=== PATIENT | female | born 1930 | race Caucasian/White ===

== ENCOUNTER 2018-06-12 16:43 | Inpatient (IN) | payer MEDICARE, OTHER ==
--- NOTE | 2018-06-12 16:53 | ED Physician Chart ---
ED Chief Complaint/HPI - Patient Information Date Seen:: 06/12/18 Time Seen:: 16:40 Chief Complaint:: Dysuria History of Present Illness:: onset x 3 days of dysuria, urinary incontinence, and polyuria; no report of trauma, H/As, S/T, neck pain, cough, C/P, SOB, Abd. Pain, A/N/V/D/C, fever, chills, or bleeding Historian:: Patient Review:: Nurse's Note Reviewed, Old Chart Reviewed, EMS run form Reviewed <Andrea Dodge - Last Filed: 06/12/18 17:11> - Patient Information Allergies:: Allergies Allergy/AdvReac Type Severity Reaction Status Date / Time red dye Allergy Verified 06/12/18 17:02 <Mary Ruiz - Last Filed: 06/13/18 09:41> ED Review of Systems - Review of Systems General/Constitutional: Fever, No chills, No weight loss, Weakness, No diaphoresis, No edema, No loss of appetite Skin: No skin lesions, No rash, No bruising Head: No headache, No light-headedness Eyes: No loss of vision, No pain, No diplopia ENT: No earache, No nasal drainage, No sore throat, No tinnitus Neck: No neck pain, No swelling, No thyromegaly, No stiffness, No mass noted Cardio Vascular: No chest pain, No palpitations, No PND, No orthopnea, No edema Pulmonary: No SOB, No cough, No sputum, No wheezing GI: No nausea, No vomiting, No diarrhea, No pain, No melena, No hematochezia, No constipation, No hematemesis G/U: No dysuria, No frequency, No hematuria, No nacturia Scientific Aide: No vaginal discharge, No abnormal vaginal bleed, No contraction Musculoskeletal: No bone or joint pain, No back pain, No muscle pain Endocrine: No polyuria, No polydipsia Psychiatric: Prior psych history, Depression, Anxiety, No suicidal ideation, No homicidal ideation, No auditory hallucination, No visual hallucination Hematopoietic: No bruising, No lymphadenopathy Allergic/Immuno: No urticaria, No angioedema Neurological: No syncope, No focal symptoms, Weakness, No paresthesia, No headache, No seizure, No dizziness, Confusion, No vertigo <Andrea Dodge - Last Filed: 06/12/18 17:11> ED Past Medical History - Past Medical History Obtainable: Yes Past Medical History: HTN, DM, Dyslipidemia, PUD/GERD, ESRD, Arthritis, Dementia , Other (Cirrhosis) Family History: Diabetes Melitus, HTN, Cancer Social History: Non Smoker, Alcohol, No Drug Use, Single, Care Facility Surgical History: PEG/GTube Psychiatricy History: Depression, Bipolar, Dementia Medication: Reviewed <Andrea Dodge - Last Filed: 06/12/18 17:11> Family Medical History - Family Member Mother History Unknown: Yes <Andrea Dodge - Last Filed: 06/12/18 17:11> ED Physical Exam - Physical Examination General/Constitutional: Awake, Well-developed, well-nourished, Alert, No distress, GCS 15, Non-toxic appearing, Ambulatory Head: Atraumatic Eyes: Lids, conjuctiva normal, PERRL, EOMI Skin: Nl inspection, No rash, No skin lesions, No ecchymosis, Well hydrated, No lymphadenopathy ENMT: External ears, nose nl, TM canals nl, Nasal exam nl, Lips, teeth, gums nl , Oropharynx nl, Tonsils nl Neck: Nontender, Full ROM w/o pain, No JVD, No nuchal rigidity, No bruit, No mass, No stridor Respiratory: Nl effort/Exclusion, Clear to Auscultation, No Wheeze/Rhonchi/Rales Cardio Vascular: RRR, No murmur, gallop, rubs, NL S1 S2, Carotid/Femoral/Distal pulses equal bilaterally GI: No tenderness/rebounding/guarding, No organomegaly, No hernia, Normal BS's, Nondistended, No mass/bruits, No McBurney tenderness : No CVA tenderness Extremities: No tenderness or effusion, Full ROM, normal strength in all extremities, No edema, Normal digits & nails Neuro/Psych: Alert/oriented, DTR's symmetric, Normal sensory exam, Normal motor strength, Judgement/insight normal, Mood normal, Normal gait, No focal deficits Misc: Normal back, No paraspinal tenderness <Andrea Dodge - Last Filed: 06/12/18 17:11> ED Labs/Radiology/EKG Results - Lab Results Comments:: Reviewed - EKG Interpretations EKG Time:: 17:03 Rate & Rhythm: 103; ST Comments:: non-specific st-t changes <Andrea Dodge - Last Filed: 06/12/18 17:11> - Lab Results Results: Laboratory Tests 06/12/18 06/12/18 06/12/18 17:12 17:12 17:12 WBC 8.7 RBC 3.55 L Hgb 11.0 L Hct 32.7 L MCV 92.0 MCH 30.9 MCHC Differential 33.6 RDW 13.7 Plt Count 160 MPV 8.1 Neutrophils % 86.1 H Lymphocytes % 7.9 L Monocytes % 3.2 Eosinophils % 1.8 Basophils % 1.0 Neutrophils (Manual) Not Reportable PT 11.2 INR 1.08 PTT (Actin FS) 27.4 Sodium 137 Potassium 3.8 Chloride 103 Carbon Dioxide 21.7 Anion Gap 16.1 H BUN 31 H Creatinine 0.7 Est GFR ( Amer) TNP Est GFR (Non-Af Amer) TNP BUN/Creatinine Ratio 44.3 Glucose 202 H Whole Bld Lactic Acid Calcium 9.2 Total Bilirubin 0.6 AST 22 ALT 22 Alkaline Phosphatase 166 H Creatine Kinase 56 Troponin I Total Protein 6.3 Albumin 3.1 L Globulin 3.2 Albumin/Globulin Ratio 1.0 Urine Source Urine Color Urine Clarity Urine pH Ur Specific Felt Urine Protein Urine Glucose (UA) Urine Ketones Urine Blood Urine Nitrate Urine Bilirubin Urine Urobilinogen Ur Leukocyte Esterase Urine RBC Urine WBC Ur Epithelial Cells Urine Bacteria 06/12/18 06/12/18 06/12/18 17:12 17:12 19:35 WBC RBC Hgb Hct MCV MCH MCHC Differential RDW Plt Count MPV Neutrophils % Lymphocytes % Monocytes % Eosinophils % Basophils % Neutrophils (Manual) PT INR PTT (Actin FS) Sodium Potassium Chloride Carbon Dioxide Anion Gap BUN Creatinine Est GFR ( Amer) Est GFR (Non-Af Amer) BUN/Creatinine Ratio Glucose Whole Bld Lactic Acid 1.87 Calcium Total Bilirubin AST ALT Alkaline Phosphatase Creatine Kinase Troponin I 0.03 Total Protein Albumin Globulin Albumin/Globulin Ratio Urine Source MIDSTREAM Urine Color YELLOW Urine Clarity HAZY Urine pH 8.5 Ur Specific Felt 1.015 Urine Protein 30 H Urine Glucose (UA) NEGATIVE Urine Ketones NEGATIVE Urine Blood SMALL H Urine Nitrate NEGATIVE Urine Bilirubin NEGATIVE Urine Urobilinogen 1.0 Ur Leukocyte Esterase LARGE H Urine RBC 2-5 Urine WBC 6-10 H Ur Epithelial Cells MODERATE Urine Bacteria 3+ H <Mary Ruiz - Last Filed: 06/13/18 09:41> ED Septic Shock - . Is Septic Shock (SBP<90, OR Lactate>4 mmol\L) present?: No <Andrea Dodge - Last Filed: 06/12/18 17:11> ED Reassessment (Disposition) - Reassessment Reassessment Condition:: Improved - Diagnosis Diagnosis:: Urinary Incontinence; Dysuria <Andrea Dodge - Last Filed: 06/12/18 17:11> - Reassessment Reassessment:: Urinary tract infection Dehydration Anemia, normocytic Altered mental status Cefepime 1g IV NS 1L IV bolus Admit to telemetry <Mary Ruiz - Last Filed: 06/13/18 09:41>
[2018-06-12] MEDS ORDERED: Haloperidol Lactate 5 mg/mL 1mL Vial IM STA (17:17)
[2018-06-12] MEDS ORDERED: Haloperidol Lactate 5 mg/mL 1mL Vial ONE (17:20)
[2018-06-12 17:21] LABS: % EOSINOPHILS 1.8 % (0.0-5.0); % LYMPHOCYTES 7.9 % (20.0-50.0); % MONOCYTES 3.2 % (2.0-10.0); % NEUTROPHILS 86.1 % (40.0-80.0); BASOPHILE ABSOLUTE 0.1 Th/cumm (0-0.2); EOSINOPHILE ABSOLUTE 0.2 Th/cmm (0.1-0.4); HEMATOCRIT 32.7 % (41.0-60); LYMPHOCYTE ABSOLUTE 0.7 Th/cmm (1.5-3.0); MEAN CORPUSCULAR HEMOGLOBIN 30.9 pg (27.0-31.0); MEAN CORPUSCULAR HGB CONC 33.6 pg (28.0-36.0); MEAN PLATELET VOLUME 8.1 fl; MONOCYTE ABSOLUTE 0.3 Th/cmm (0.3-1.0); NEUTROPHILE ABSOLUTE 7.4 Th/cmm (1.8-8.0); PLATELET COUNT 160 Th/cmm (150-400); RED BLOOD COUNT 3.55 Mil/cmm (3.80-5.20); RED CELL DISTRIBUTION WIDTH 13.7 % (11.5-20.0); WHITE BLOOD COUNT 8.7 Th/cmm (4.8-10.8)
[2018-06-12 17:33] LABS: INR 1.08 (0.5-1.4); PROTHROMBIN TIME (TEST) 11.2 SECONDS (9.5-11.5)
[2018-06-12 17:38] LABS: ALBUMIN 3.1 gm/dL (3.7-5.3); ALKALINE PHOSPHATASE 166 U/L (34-104); ANION GAP 16.1 (7.0-16.0); BILIRUBIN,TOTAL 0.6 mg/dL (0.3-1.0); BUN - UREA NITROGEN 31 mg/dL (7-25); CALCIUM SERUM 9.2 mg/dL (8.6-10.3); CARBON DIOXIDE 21.7 mEq/L (21.0-31.0); CHLORIDE 103 mEq/L (98-107); CREATININE - SERUM 0.7 mg/dL (0.6-1.2); CREATININE KINASE 56 U/L (30-223); GLUCOSE 202 mg/dL (70-105); POTASSIUM SERUM 3.8 mEq/L (3.5-5.1); SGOT 22 U/L (13-39); SGPT/ALT 22 U/L (7-52); SODIUM SERUM 137 mEq/L (136-145); TOTAL PROTEIN,SERUM 6.3 gm/dL (6.0-8.3)
[2018-06-12 19:39] LABS: URINE SOURCE MIDSTREAM
[2018-06-12] MEDS ORDERED: Sodium Chloride 0.9% 1,000 ML IV ONE (19:40)
[2018-06-12 19:41] LABS: URINE BILIRUBIN NEGATIVE (NEGATIVE); URINE BLOOD SMALL (NEGATIVE); URINE GLUCOSE (UA) NEGATIVE (NEGATIVE); URINE KETONE NEGATIVE (NEGATIVE); URINE LEUKOCYTE ESTERASE LARGE (NEGATIVE); URINE MICROSCOPIC INDICATED? YES; URINE NITRATE NEGATIVE (NEGATIVE); URINE PH 8.5 (4.6 - 8.0); URINE PROTEIN 30 mg/dL (NEGATIVE)
[2018-06-12] MEDS ORDERED: Cefepime 1 GM in Sodium Chloride 0.9% 50 ML IV ONE (20:11)
[2018-06-12 20:35] LABS: URINE CLARITY HAZY (CLEAR); URINE COLOR YELLOW
[2018-06-12 20:37] LABS: URINE BACTERIA 3+ /hpf (NONE SEEN); URINE EPITHELIAL CELLS MODERATE /lpf (FEW)
[2018-06-12] MEDS: cefTRIAXone 1 GM in Sodium Chloride 0.9% 50 ML IV SCH (23:30)
[2018-06-12 23:52] VITALS: BP 134/61
[2018-06-13] MEDS: Pantoprazole 40 mg/Packet GT SCH (07:24)
[2018-06-13] MEDS: INSULIN ASPART SLIDING SCALE 100 UNITS/ML UNIT SUBQ SCH ×4 (08:31→21:02)
[2018-06-13] MEDS: Lactobacillus Rhamnosus GG 15 Billion CFU CAP.SPRINK GT SCH (08:32)
--- NOTE | 2018-06-13 08:32 | Diagnostic Imaging Report ---
CHEST X-RAY: AP view INDICATION: pain COMPARISON: None FINDINGS: There is increased interstitial lung markings with left basal subsegmental atelectasis versus scarring. There is no focal consolidation or pleural effusions . Mild cardiomegaly is noted with atherosclerosis. Degenerative changes of the spine are noted. IMPRESSION: Increased interstitial lung markings with left basal subsegmental atelectasis versus scarring. No focal consolidation identified Cardiomegaly and atherosclerotic vascular disease.
--- NOTE | 2018-06-13 09:21 | Diagnostic Imaging Report ---
Right tib-fib 2 views Indication: Pain, previous fracture fixation Comparison: none Findings: The exam is limited due to positioning and overlying external material. There is evidence of intramedullary luis and distal screw fixation of oblique distal tibial shaft fracture. No definite evidence of hardware loosening. Lucency seen projecting along the posterior tib-fib region on the lateral view likely represents healing proximal fibular shaft fracture. There is also evidence of sideplate and screw fixation of distal fibular fracture. There is an oblique mildly displaced nonunited chronic appearing fracture just proximal to the surgical plate. Osteopenia is noted. Degenerative changes are noted. There is chondrocalcinosis of the knee joint. Atherosclerosis is noted. A distal Achilles spurring is noted IMPRESSION: Evidence of fracture fixation of tibial and fibular fractures. There is a nonunited chronic appearing oblique fracture proximal to the fibular plate. Please correlate clinically. Additional healing proximal fibular shaft fracture is noted. No definite evidence of hardware loosening. Osteopenia. Degenerative changes. In the setting of trauma, if clinical symptoms persist and there is continued concern for an occult fracture, follow up exams in 5-7 days is suggested.
[2018-06-13] MEDS: Hydrocodone/APAP 5mg/325mg Tab PO PRN ×2 (09:46→17:15)
[2018-06-13] MEDS: Miconazole Nitrate 2% Antifungal Wound Cream 4 oz. Tube TP SCH (16:59)
[2018-06-13] MEDS: Insulin Detemir 100 units/mL 10mL Vial SUBQ SCH (17:12)
[2018-06-13] MEDS: cefTRIAXone 1 GM in Sodium Chloride 0.9% 50 ML IV SCH (23:02)
--- NOTE | 2018-06-14 01:34 | History & Physical ---
ADMIT DATE: 06/13/2018 CHIEF COMPLAINT: Altered mental status. HISTORY OF PRESENT ILLNESS: An 87-year-old female with underlying history of dysphagia on tube feeding, dementia, mental disorder, hypertension, prior history of complicated UTI, who was transferred to Emergency Room for evaluation of increasing confusions and agitations. The patient during admission diagnosed with complicated UTI and subsequently admitted for further treatments. At the time of eval, the patient seems confused, but denies any pain, no trouble breathing. No reported diarrhea or vomiting. No fever or any chills reported. PAST MEDICAL HISTORY: Dysphagia. PAST SURGICAL HISTORY: G-tube placement. FAMILY HISTORY: Noncontributory. SOCIAL HISTORY: Lives at nursing facility. No reported of alcohol, tobacco, or street drug use. CURRENT MEDICATIONS: Per medication reconciliation. ALLERGIES: No known drug allergies. REVIEW OF SYSTEMS: As per HPI, 12-point system appears negative. PHYSICAL EXAMINATION: VITAL SIGNS: Temperature 97.8, pulse 71, respirations 18, blood pressure 146/80 with 99% on room air. HEART: S1, S2 normal. LUNGS: Clear to auscultation bilaterally. ABDOMEN: Soft, nontender. NEUROLOGIC: The patient awake, confused, but able to move all extremities: Able to follow commands. AVAILABLE LABORATORY DATA: WBC 8.7, hemoglobin 11.0, hematocrit 32.7, platelets 160. Sodium is 137, potassium is 3.8, BUN is 31. Lactic acid is 1.87, troponin 0.03. Urine has large leukocyte esterase positive. Chest x-ray, no acute findings. ASSESSMENT: 1. Complicated urinary tract infection. 2. Right tibia fibula fracture. 3. Hypertension. 4. Dementia. 5. Dysphagia. 6. Mental disorder. PLAN: The patient was admitted to med/surg floor, started on IV antibiotic. Blood culture and urine culture was obtained. ID was consulted. Psych was consulted. The patient had an x-ray done of the right tibia fibula suggestive of internal fixations with chronic fracture. I did discuss the case with the patient's Orthopedic and I also discussed the x-ray findings. Per Orthopedic, no further management is recommended at this point. I also updated the patient's daughter regarding the patient's condition and plan of care with nursing staff. PT, OT, ST evaluation is ordered. JOB# [id number] BRITTNEY
[2018-06-14] MEDS: Hydrocodone/APAP 5mg/325mg Tab PO PRN ×4 (01:41→21:20)
[2018-06-14 05:41] LABS: % BASOPHILS 0.1 % (0.0-2.0); % LYMPHOCYTES 9.4 % (20.0-50.0); % MONOCYTES 7.3 % (2.0-10.0); % NEUTROPHILS 80.2 % (40.0-80.0); EOSINOPHILE ABSOLUTE 0.2 Th/cmm (0.1-0.4); HEMATOCRIT 30.3 % (41.0-60); HEMOGLOBIN 10.2 gm/dL (12-16); LYMPHOCYTE ABSOLUTE 0.7 Th/cmm (1.5-3.0); MEAN CELL VOLUME 92.7 fl (81-100); MEAN CORPUSCULAR HEMOGLOBIN 31.2 pg (27.0-31.0); MEAN CORPUSCULAR HGB CONC 33.7 pg (28.0-36.0); MEAN PLATELET VOLUME 8.1 fl; MONOCYTE ABSOLUTE 0.5 Th/cmm (0.3-1.0); NEUTROPHILE ABSOLUTE 5.9 Th/cmm (1.8-8.0); PLATELET COUNT 146 Th/cmm (150-400); RED BLOOD COUNT 3.27 Mil/cmm (3.80-5.20); RED CELL DISTRIBUTION WIDTH 13.3 % (11.5-20.0); WHITE BLOOD COUNT 7.3 Th/cmm (4.8-10.8)
[2018-06-14 05:58] LABS: ALB/GLOB RATIO 0.9 (1.0-1.8); ALBUMIN 2.7 gm/dL (3.7-5.3); ALKALINE PHOSPHATASE 159 U/L (34-104); ANION GAP 11.2 (7.0-16.0); BILIRUBIN,TOTAL 0.4 mg/dL (0.3-1.0); BUN - UREA NITROGEN 26 mg/dL (7-25); CALCIUM SERUM 8.7 mg/dL (8.6-10.3); CARBON DIOXIDE 24.7 mEq/L (21.0-31.0); CHLORIDE 106 mEq/L (98-107); CREATININE - SERUM 0.7 mg/dL (0.6-1.2); GLUCOSE 228 mg/dL (70-105); POTASSIUM SERUM 3.9 mEq/L (3.5-5.1); SGOT 22 U/L (13-39); SGPT/ALT 19 U/L (7-52); SODIUM SERUM 138 mEq/L (136-145); TOTAL PROTEIN,SERUM 5.6 gm/dL (6.0-8.3)
--- NOTE | 2018-06-14 06:20 | Consultation ---
DATE OF CONSULTATION: 06/13/2018 REFERRING PHYSICIAN: Dr. Alatorre. REASON FOR CONSULTATION: Urinary tract infection. HISTORY OF PRESENT ILLNESS: The patient is an 87-year-old female with a past medical history of dementia, dysphagia, and G-tube feeding, hypertension, history of UTI in the past, developed agitation as well as increasing confusion. On initial evaluation, the patient's temperature was 98 degrees Fahrenheit and WBC count 8700. Urinalysis, no pyuria and bacteriuria. ID consult was called for further evaluation and management. Meanwhile, the patient was already started on Rocephin. PAST MEDICAL HISTORY: Dementia, hypertension, diabetes mellitus type 2, dyslipidemia, peptic ulcer disease, ESRD, arthritis, dementia, cirrhosis. FAMILY HISTORY: Hypertension, diabetes mellitus type 2, cancer. SOCIAL HISTORY: The patient lives at nursing facility. No history of smoking, alcohol or drug use. PAST SURGICAL HISTORY: G-tube placement. PAST SURGICAL HISTORY: Includes G-tube placement. PSYCHIATRIC HISTORY: Depression, bipolar and Dementia. FAMILY HISTORY: Unknown. PHYSICAL EXAMINATION: VITAL SIGNS: Shows temperature is 98.5 degrees Fahrenheit, pulse 88, respirations 17, blood pressure 135/47. GENERAL: The patient is comfortable lying in the bed, not in acute distress. HEENT: Head is normocephalic, atraumatic. Oral cavity moist, pink tongue. Eyes: No pallor, no icterus. PERRLA, EOMI. NECK: Supple, no JVD, no carotid bruit. Trachea in midline. CHEST: Bilateral breath sounds. No crackles or wheezing. HEART: S1, S2 within normal limits. Regular rhythm. No murmur, no gallop. ABDOMEN: Soft, nontender, nondistended. Bowel sounds present. EXTREMITIES: No cyanosis, no clubbing, no edema. NEUROLOGIC: Alert, awake. LABORATORY DATA: Current lab shows WBC count is 8700, hemoglobin 11, hematocrit 32.7, platelets are 160,000, neutrophils 86%. Urinalysis showed small blood with leukoesterase large. WBC 6-10 and 3+ bacteria. Blood culture 2 sets are negative. REVIEW OF SYSTEMS: GENERAL: The patient has no fever, no chills. No diplopia, no photophobia. RESPIRATORY: No cough, no shortness of breath. No chest pain, no palpitation. GASTROINTESTINAL: No nausea, no vomiting, no diarrhea. GENITOURINARY: No dysuria, no hematuria NEUROLOGIC: No headache, no dizziness, no focal weakness. Urinalysis showed WBC is 6-10 and leukoesterase large and many bacteria. IMPRESSION: 1. Urinary tract infection. 2. Dementia. 3. Hypertension. 4. Diabetes mellitus type 2. 5. Dementia. RECOMMENDATIONS: Continue the same. Thank you, Dr Alatorre for involving me for taking care of this patient. JOB# [id number] MTDReilly
[2018-06-14] MEDS: Pantoprazole 40 mg/Packet GT SCH (06:44)
[2018-06-14] MEDS: INSULIN ASPART SLIDING SCALE 100 UNITS/ML UNIT SUBQ SCH ×4 (06:47→21:52)
[2018-06-14] MEDS: Lactobacillus Rhamnosus GG 15 Billion CFU CAP.SPRINK GT SCH (09:40)
[2018-06-14] MEDS: Miconazole Nitrate 2% Antifungal Wound Cream 4 oz. Tube TP SCH ×2 (09:41→17:00)
--- NOTE | 2018-06-14 16:58 | Infectious Disease Prog Note ---
Infectious Disease Subjective - Review of Systems Service Date: 06/14/18 Subjective: There is no new change, no fever. Infectious Disease Objective - Results Result Diagrams: 06/14/18 05:00 06/14/18 05:00 Recent Labs: Laboratory Last Values WBC 7.3 Th/cmm (4.8-10.8) 06/14/18 05:00 RBC 3.27 Mil/cmm (3.80-5.20) L 06/14/18 05:00 Hgb 10.2 gm/dL (12-16) L 06/14/18 05:00 Hct 30.3 % (41.0-60) L 06/14/18 05:00 MCV 92.7 fl (81-100) 06/14/18 05:00 MCH 31.2 pg (27.0-31.0) H 06/14/18 05:00 MCHC Differential 33.7 pg (28.0-36.0) 06/14/18 05:00 RDW 13.3 % (11.5-20.0) 06/14/18 05:00 Plt Count 146 Th/cmm (150-400) L 06/14/18 05:00 MPV 8.1 fl 06/14/18 05:00 Neutrophils % 80.2 % (40.0-80.0) H 06/14/18 05:00 Lymphocytes % 9.4 % (20.0-50.0) L 06/14/18 05:00 Monocytes % 7.3 % (2.0-10.0) 06/14/18 05:00 Eosinophils % 3.0 % (0.0-5.0) 06/14/18 05:00 Basophils % 0.1 % (0.0-2.0) 06/14/18 05:00 Neutrophils (Manual) Not Reportable 06/12/18 17:12 PT 11.2 SECONDS (9.5-11.5) 06/12/18 17:12 INR 1.08 (0.5-1.4) 06/12/18 17:12 PTT (Actin FS) 27.4 SECONDS (26.0-38.0) 06/12/18 17:12 Sodium 138 mEq/L (136-145) 06/14/18 05:00 Potassium 3.9 mEq/L (3.5-5.1) 06/14/18 05:00 Chloride 106 mEq/L (98-107) 06/14/18 05:00 Carbon Dioxide 24.7 mEq/L (21.0-31.0) 06/14/18 05:00 Anion Gap 11.2 (7.0-16.0) 06/14/18 05:00 BUN 26 mg/dL (7-25) H 06/14/18 05:00 Creatinine 0.7 mg/dL (0.6-1.2) 06/14/18 05:00 Est GFR ( Amer) TNP 06/14/18 05:00 Est GFR (Non-Af Amer) TNP 06/14/18 05:00 BUN/Creatinine Ratio 37.1 06/14/18 05:00 Glucose 228 mg/dL (70-105) H 06/14/18 05:00 POC Glucose 314 MG/DL (70 - 105) H 06/14/18 12:00 Whole Bld Lactic Acid 1.87 mmol/L (0.60-1.99) 06/12/18 17:12 Calcium 8.7 mg/dL (8.6-10.3) 06/14/18 05:00 Total Bilirubin 0.4 mg/dL (0.3-1.0) 06/14/18 05:00 AST 22 U/L (13-39) 06/14/18 05:00 ALT 19 U/L (7-52) 06/14/18 05:00 Alkaline Phosphatase 159 U/L (34-104) H 06/14/18 05:00 Ammonia 33 umol/L (16-53) 06/14/18 05:00 Creatine Kinase 56 U/L (30-223) 06/12/18 17:12 Troponin I 0.03 ng/mL (0.01-0.05) 06/12/18 17:12 Total Protein 5.6 gm/dL (6.0-8.3) L 06/14/18 05:00 Albumin 2.7 gm/dL (3.7-5.3) L 06/14/18 05:00 Globulin 2.9 gm/dL 06/14/18 05:00 Albumin/Globulin Ratio 0.9 (1.0-1.8) L 06/14/18 05:00 TSH 0.75 uIU/ml (0.34-5.60) 06/14/18 05:00 Urine Source MIDSTREAM 06/12/18 19:35 Urine Color YELLOW 06/12/18 19:35 Urine Clarity HAZY (CLEAR) 06/12/18 19:35 Urine pH 8.5 (4.6 - 8.0) 06/12/18 19:35 Ur Specific [place] 1.015 (1.005-1.030) 06/12/18 19:35 Urine Protein 30 mg/dL (NEGATIVE) H 06/12/18 19:35 Urine Glucose (UA) NEGATIVE mg/dL (NEGATIVE) 06/12/18 19:35 Urine Ketones NEGATIVE mg/dL (NEGATIVE) 06/12/18 19:35 Urine Blood SMALL (NEGATIVE) H 06/12/18 19:35 Urine Nitrate NEGATIVE (NEGATIVE) 06/12/18 19:35 Urine Bilirubin NEGATIVE (NEGATIVE) 06/12/18 19:35 Urine Urobilinogen 1.0 E.U./dL (0.2 - 1.0) 06/12/18 19:35 Ur Leukocyte Esterase LARGE (NEGATIVE) H 06/12/18 19:35 Urine RBC 2-5 /hpf (0-5) 06/12/18 19:35 Urine WBC 6-10 /hpf (0-5) H 06/12/18 19:35 Ur Epithelial Cells MODERATE /lpf (FEW) 06/12/18 19:35 Urine Bacteria 3+ /hpf (NONE SEEN) H 06/12/18 19:35 - Physical Exam Vitals and I&O: Vital Signs Temp 98.7 F 06/14/18 12:00 Pulse 83 06/14/18 12:00 Resp 18 06/14/18 12:00 BP 121/56 06/14/18 12:00 Pulse Ox 96 06/14/18 12:00 Intake & Output 06/13/18 06/14/18 06/14/18 18:59 06:59 18:59 Intake Total 840 50 Balance 840 50 Weight (lbs) 74.843 kg 74.843 kg Intake: Intake, IV Amount 50 cefTRIAXone 1 gm In 50 Sodium Chloride 0.9% 50 ml @ 100 mls/hr IV Q24H BETTY Rx#:[id number] Tube Feeding 840 Other: # Voids 4 2 # Bowel Movements 0 0 Weight Source Bedscale Bedscale Active Medications: Current Medications Acetaminophen (Tylenol 650mg/20.3ml Suspension) 650 mg GT Q4H PRN PRN Reason: mild pain/temp >100.4F Acetaminophen/Hydrocodone Bitart ([place] 5mg/325mg) 1 tab PO Q4H PRN PRN Reason: Pain (Severe) Stop: 08/11/18 21:02 Last Admin: 06/14/18 10:55 Dose: 1 tab Aspirin (Ecotrin) 81 mg PO DAILY [facility] Stop: 08/12/18 08:59 Last Admin: 06/14/18 09:40 Dose: 81 mg Donepezil HCl (Aricept) 10 mg GT HS [facility] Stop: 08/12/18 20:59 Last Admin: 06/13/18 20:20 Dose: 10 mg Ceftriaxone Sodium 1 gm/ (Sodium Chloride) 50 mls @ 100 mls/hr IV Q24H [facility] Stop: 08/11/18 22:29 Last Infusion: 06/14/18 02:36 Dose: Infused Insulin Aspart (Novolog Insulin Sliding Scale) 0 units SUBQ ACHS [facility]; Protocol Stop: 08/12/18 08:14 Last Admin: 06/14/18 12:09 Dose: 8 units Insulin Detemir (Levemir Insulin) 20 units SUBQ 1700 [facility] Stop: 08/12/18 16:59 Last Admin: 06/13/18 17:12 Dose: 20 units Lactobacillus Rhamnosus (Culturelle 15b) 1 each GT DAILY [facility] Stop: 08/12/18 08:59 Last Admin: 06/14/18 09:40 Dose: 1 each Lisinopril (Zestril) 5 mg GT HS [facility] Stop: 08/12/18 20:59 Last Admin: 06/13/18 20:20 Dose: 5 mg Miconazole Nitrate (Antifungal Wound Cream) 1 appl TP BID [facility] Stop: 08/12/18 16:59 Last Admin: 06/14/18 09:41 Dose: 1 appl Neomycin Sulfate (Neomycin) 500 mg GT BID [facility] Stop: 08/12/18 08:59 Last Admin: 06/14/18 09:40 Dose: 500 mg Olanzapine (Zyprexa) 2.5 mg GT DAILY [facility]; Protocol Stop: 08/12/18 08:59 Last Admin: 06/14/18 09:40 Dose: 2.5 mg Pantoprazole Sodium (Protonix) 40 mg GT QDAC [facility] Stop: 08/12/18 07:29 Last Admin: 06/14/18 06:44 Dose: 40 mg Quetiapine Fumarate (Seroquel) 100 mg GT DAILY [facility]; Protocol Stop: 08/14/18 08:59 General: no acute distress, well developed, well nourished HEENT: atraumatic, normocephalic, PERRLA, EOMI Neck: supple, no thyromegaly, no lymphadenopathy Cardiovascular: S1S2, regular Lungs: clear to auscultation bilaterally, clear to percussion Abdomen: soft, no tender, no distended, no mass Extremities: no cyanosis, no clubbing Neurological: awake, alert Skin: intact - Procedures Procedures: Procedures Procedure Code Date GROUP PSYCHOTHERAPY 17457 10/16/15 GROUP PSYCHOTHERAPY [id number] 10/16/15 OTHER GROUP THERAPY 94.44 11/01/06 Infectious Disease Assmt/Plan - Assessment Assessment: 1. Urinary tract infection. 2. Dementia. 3. Hypertension. 4. Diabetes mellitus type 2. - Plan Plan: Continue Rocephin. Nutritional Asmnt/Malnutr-PDOC - Dietary Evaluation Malnutrition Findings (Please click <Entered> for more info): Nutritional Asmnt/Malnutrition Start: 06/13/18 15: 43 Text: Status: Complete Freq: Protocol: Document 06/13/18 15:43 LCHENG (Rec: 06/13/18 16:21 LCHENG [email or web address]) Nutritional Asmnt/Malnutrition Patient General Information Nutritional Screening High Risk Consult Diagnosis UTI, dehydration Pertinent Medical Hx/Surgical Hx HTN, DM, dyslipidemia, PUD/ GERD, arthritis, dementia, cirrhosis, PEG/GERD, depression, bipolar Subjective Information Consult received for buttocks intertrigo/wound. Pt seen sleeping at time of visit. TF was seen running at 70ml/hr at this time. Current Diet Order/ Nutrition Support glucerna 1.2 at 70ml/hr x 20hr Pertinent Medications novolog, levemir, culturelle, protonix Pertinent Labs 06/13 POC [id number] 06/12 BUN 31, Glucose 202, alb 3.1 Nutritional Hx/Data Height 1.7 m Height (Calculated Centimeters) 170.2 Current Weight (lbs) 74.843 kg Weight (Calculated Kilograms) 74.8 Weight (Calculated Grams) 64113.7 [place] Body Weight 135 Body Mass Index (BMI) 25.8 Weight Status Overweight GI Symptoms GI Symptoms None Last BM 12 Difficult in: None Skin Integrity/Comment: rash to perinium, pressure area reddened to buttocks, reddened to anterior vagina, GT sites, R/L lower legs, bruise to right upper arm Estimated Nutritional Goals Calories/Kcals/Kg 25-30 IBW 61kg Kcals Calculated 0769-4483 Protein g/k-1.2 Protein Calculated 61-73 Fluid: ml 1525-1830ml (1ml/kcal) Nutritional Problem 1. Problem Problem altered nutrition related labs Etiology hyperglycemia, endocrine dysfunction Signs/Symptoms: glucose 202, POC 182-279 Intervention/Recommendation Comments 1. Continue with current TF regimen Glucerna 1.2 70ml/hr x 20hr. It provides 1680kcal, 84g protein, 1127ml free water , meeting 100% of nutritional needs. 2. Monitor TF rate, tolerance, wt, skin integrity and labs. MD to adjust insulin for optimal glycemic control. 3. F/U as moderate risk in 3-5 days, 06/16-06/18 Expected Outcomes/Goals Expected Outcomes/Goals 1. Pt to meet at least 90% of nutritional needs via nutrition support with tolerance 2. Wt stability, skin to remain intact, labs to approach WNL.
[2018-06-14] MEDS: Insulin Detemir 100 units/mL 10mL Vial SUBQ SCH (17:11)
--- NOTE | 2018-06-14 17:14 | General Progress Note ---
Subjective - Review of Systems Service Date: 06/14/18 Subjective: Patient seen and examined awake but confused Objective - Results Result Diagrams: 06/14/18 05:00 06/14/18 05:00 Recent Labs: Laboratory Last Values WBC 7.3 Th/cmm (4.8-10.8) 06/14/18 05:00 RBC 3.27 Mil/cmm (3.80-5.20) L 06/14/18 05:00 Hgb 10.2 gm/dL (12-16) L 06/14/18 05:00 Hct 30.3 % (41.0-60) L 06/14/18 05:00 MCV 92.7 fl (81-100) 06/14/18 05:00 MCH 31.2 pg (27.0-31.0) H 06/14/18 05:00 MCHC Differential 33.7 pg (28.0-36.0) 06/14/18 05:00 RDW 13.3 % (11.5-20.0) 06/14/18 05:00 Plt Count 146 Th/cmm (150-400) L 06/14/18 05:00 MPV 8.1 fl 06/14/18 05:00 Neutrophils % 80.2 % (40.0-80.0) H 06/14/18 05:00 Lymphocytes % 9.4 % (20.0-50.0) L 06/14/18 05:00 Monocytes % 7.3 % (2.0-10.0) 06/14/18 05:00 Eosinophils % 3.0 % (0.0-5.0) 06/14/18 05:00 Basophils % 0.1 % (0.0-2.0) 06/14/18 05:00 Neutrophils (Manual) Not Reportable 06/12/18 17:12 PT 11.2 SECONDS (9.5-11.5) 06/12/18 17:12 INR 1.08 (0.5-1.4) 06/12/18 17:12 PTT (Actin FS) 27.4 SECONDS (26.0-38.0) 06/12/18 17:12 Sodium 138 mEq/L (136-145) 06/14/18 05:00 Potassium 3.9 mEq/L (3.5-5.1) 06/14/18 05:00 Chloride 106 mEq/L (98-107) 06/14/18 05:00 Carbon Dioxide 24.7 mEq/L (21.0-31.0) 06/14/18 05:00 Anion Gap 11.2 (7.0-16.0) 06/14/18 05:00 BUN 26 mg/dL (7-25) H 06/14/18 05:00 Creatinine 0.7 mg/dL (0.6-1.2) 06/14/18 05:00 Est GFR ( Amer) TNP 06/14/18 05:00 Est GFR (Non-Af Amer) TNP 06/14/18 05:00 BUN/Creatinine Ratio 37.1 06/14/18 05:00 Glucose 228 mg/dL (70-105) H 06/14/18 05:00 POC Glucose 194 MG/DL (70 - 105) H 06/14/18 17:03 Whole Bld Lactic Acid 1.87 mmol/L (0.60-1.99) 06/12/18 17:12 Calcium 8.7 mg/dL (8.6-10.3) 06/14/18 05:00 Total Bilirubin 0.4 mg/dL (0.3-1.0) 06/14/18 05:00 AST 22 U/L (13-39) 06/14/18 05:00 ALT 19 U/L (7-52) 06/14/18 05:00 Alkaline Phosphatase 159 U/L (34-104) H 06/14/18 05:00 Ammonia 33 umol/L (16-53) 06/14/18 05:00 Creatine Kinase 56 U/L (30-223) 06/12/18 17:12 Troponin I 0.03 ng/mL (0.01-0.05) 06/12/18 17:12 Total Protein 5.6 gm/dL (6.0-8.3) L 06/14/18 05:00 Albumin 2.7 gm/dL (3.7-5.3) L 06/14/18 05:00 Globulin 2.9 gm/dL 06/14/18 05:00 Albumin/Globulin Ratio 0.9 (1.0-1.8) L 06/14/18 05:00 TSH 0.75 uIU/ml (0.34-5.60) 06/14/18 05:00 Urine Source MIDSTREAM 06/12/18 19:35 Urine Color YELLOW 06/12/18 19:35 Urine Clarity HAZY (CLEAR) 06/12/18 19:35 Urine pH 8.5 (4.6 - 8.0) 06/12/18 19:35 Ur Specific [place] 1.015 (1.005-1.030) 06/12/18 19:35 Urine Protein 30 mg/dL (NEGATIVE) H 06/12/18 19:35 Urine Glucose (UA) NEGATIVE mg/dL (NEGATIVE) 06/12/18 19:35 Urine Ketones NEGATIVE mg/dL (NEGATIVE) 06/12/18 19:35 Urine Blood SMALL (NEGATIVE) H 06/12/18 19:35 Urine Nitrate NEGATIVE (NEGATIVE) 06/12/18 19:35 Urine Bilirubin NEGATIVE (NEGATIVE) 06/12/18 19:35 Urine Urobilinogen 1.0 E.U./dL (0.2 - 1.0) 06/12/18 19:35 Ur Leukocyte Esterase LARGE (NEGATIVE) H 06/12/18 19:35 Urine RBC 2-5 /hpf (0-5) 06/12/18 19:35 Urine WBC 6-10 /hpf (0-5) H 06/12/18 19:35 Ur Epithelial Cells MODERATE /lpf (FEW) 06/12/18 19:35 Urine Bacteria 3+ /hpf (NONE SEEN) H 06/12/18 19:35 - Physical Exam Vitals and I&O: Vital Signs Temp 99.0 F 06/14/18 16:00 Pulse 84 06/14/18 16:00 Resp 16 06/14/18 16:00 BP 100/47 06/14/18 16:00 Pulse Ox 98 06/14/18 16:00 Intake & Output 06/13/18 06/14/18 06/14/18 18:59 06:59 18:59 Intake Total 840 50 Balance 840 50 Weight (lbs) 74.843 kg 74.843 kg Intake: Intake, IV Amount 50 cefTRIAXone 1 gm In 50 Sodium Chloride 0.9% 50 ml @ 100 mls/hr IV Q24H [facility] Rx#:[id number] Tube Feeding 840 Other: # Voids 4 2 # Bowel Movements 0 0 Weight Source Bedscale Bedscale Active Medications: Current Medications Acetaminophen (Tylenol 650mg/20.3ml Suspension) 650 mg GT Q4H PRN PRN Reason: mild pain/temp >100.4F Acetaminophen/Hydrocodone Bitart ([place] 5mg/325mg) 1 tab PO Q4H PRN PRN Reason: Pain (Severe) Stop: 08/11/18 21:02 Last Admin: 06/14/18 10:55 Dose: 1 tab Aspirin (Ecotrin) 81 mg PO DAILY [facility] Stop: 08/12/18 08:59 Last Admin: 06/14/18 09:40 Dose: 81 mg Donepezil HCl (Aricept) 10 mg GT HS [facility] Stop: 08/12/18 20:59 Last Admin: 06/13/18 20:20 Dose: 10 mg Ceftriaxone Sodium 1 gm/ (Sodium Chloride) 50 mls @ 100 mls/hr IV Q24H [facility] Stop: 08/11/18 22:29 Last Infusion: 06/14/18 02:36 Dose: Infused Insulin Aspart (Novolog Insulin Sliding Scale) 0 units SUBQ ACHS [facility]; Protocol Stop: 08/12/18 08:14 Last Admin: 06/14/18 12:09 Dose: 8 units Insulin Detemir (Levemir Insulin) 20 units SUBQ 1700 [facility] Stop: 08/12/18 16:59 Last Admin: 06/13/18 17:12 Dose: 20 units Lactobacillus Rhamnosus (Culturelle 15b) 1 each GT DAILY [facility] Stop: 08/12/18 08:59 Last Admin: 06/14/18 09:40 Dose: 1 each Lisinopril (Zestril) 5 mg GT HS [facility] Stop: 08/12/18 20:59 Last Admin: 06/13/18 20:20 Dose: 5 mg Miconazole Nitrate (Antifungal Wound Cream) 1 appl TP BID [facility] Stop: 08/12/18 16:59 Last Admin: 06/14/18 17:00 Dose: 1 appl Neomycin Sulfate (Neomycin) 500 mg GT BID [facility] Stop: 08/12/18 08:59 Last Admin: 06/14/18 17:00 Dose: 500 mg Olanzapine (Zyprexa) 2.5 mg GT DAILY [facility]; Protocol Stop: 08/12/18 08:59 Last Admin: 06/14/18 09:40 Dose: 2.5 mg Pantoprazole Sodium (Protonix) 40 mg GT QDAC [facility] Stop: 08/12/18 07:29 Last Admin: 06/14/18 06:44 Dose: 40 mg Quetiapine Fumarate (Seroquel) 100 mg GT DAILY [facility]; Protocol Stop: 08/14/18 08:59 Cardiovascular: Regular rate Lungs: Clear to auscultation - Procedures Procedures: Procedures Procedure Code Date GROUP PSYCHOTHERAPY 98928 10/16/15 GROUP PSYCHOTHERAPY GZHZZZZ 10/16/15 OTHER GROUP THERAPY 94.44 11/01/06 Assessment/Plan - Assessment Assessment: Altered mental state UTI Dysphagia Dementia - Plan Plan: ST eval Continue antibiotics Follow final culture Continue antibiotics Case discussed with ID Nutritional Asmnt/Malnutr-PDOC - Dietary Evaluation Malnutrition Findings (Please click <Entered> for more info): Nutritional Asmnt/Malnutrition Start: 06/13/18 15: 43 Text: Status: Complete Freq: Protocol: Document 06/13/18 15:43 FARRUKH (Rec: 06/13/18 16:21 [email or web address]) Nutritional Asmnt/Malnutrition Patient General Information Nutritional Screening High Risk Consult Diagnosis UTI, dehydration Pertinent Medical Hx/Surgical Hx HTN, DM, dyslipidemia, PUD/ GERD, arthritis, dementia, cirrhosis, PEG/GERD, depression, bipolar Subjective Information Consult received for buttocks intertrigo/wound. Pt seen sleeping at time of visit. TF was seen running at 70ml/hr at this time. Current Diet Order/ Nutrition Support glucerna 1.2 at 70ml/hr x 20hr Pertinent Medications novolog, levemir, culturelle, protonix Pertinent Labs 06/13 POC [id number] 06/12 BUN 31, Glucose 202, alb 3.1 Nutritional Hx/Data Height 1.7 m Height (Calculated Centimeters) 170.2 Current Weight (lbs) 74.843 kg Weight (Calculated Kilograms) 74.8 Weight (Calculated Grams) 16622.7 [place] Body Weight 135 Body Mass Index (BMI) 25.8 Weight Status Overweight GI Symptoms GI Symptoms None Last BM 06/13 Difficult in: None Skin Integrity/Comment: rash to perinium, pressure area reddened to buttocks, reddened to anterior vagina, GT sites, R/L lower legs, bruise to right upper arm Estimated Nutritional Goals Calories/Kcals/Kg 25-30 IBW 61kg Kcals Calculated 0577-7780 Protein g/k-1.2 Protein Calculated 61-73 Fluid: ml 1525-1830ml (1ml/kcal) Nutritional Problem 1. Problem Problem altered nutrition related labs Etiology hyperglycemia, endocrine dysfunction Signs/Symptoms: glucose 202, POC 182-279 Intervention/Recommendation Comments 1. Continue with current TF regimen Glucerna 1.2 70ml/hr x 20hr. It provides 1680kcal, 84g protein, 1127ml free water , meeting 100% of nutritional needs. 2. Monitor TF rate, tolerance, wt, skin integrity and labs. MD to adjust insulin for optimal glycemic control. 3. F/U as moderate risk in 3-5 days, 06/16-06/18 Expected Outcomes/Goals Expected Outcomes/Goals 1. Pt to meet at least 90% of nutritional needs via nutrition support with tolerance 2. Wt stability, skin to remain intact, labs to approach WNL.
--- NOTE | 2018-06-14 20:47 | Consultation ---
DATE OF CONSULTATION: 06/14/2018 IDENTIFYING INFORMATION: The patient is an 87-year-old female. HISTORY OF PRESENT ILLNESS: I was asked to see this patient because of depression. The patient has been crying, saying that she is mourning. She is demented, confused, unable to carry on a conversation and make safe plan for self-care. She has not been able to carry on a conversation, keep crying. She has been diagnosed dementia with history of depression. The patient is eating through the G-tube. She has dysphagia. The patient was admitted because of altered level of consciousness with UTI infection. The patient was confused. She; however, when I talked to her, she says they gave her codeine for pain and she had physical therapy so, she was tired. The staff reports she has been crying and more telling them she is mourning, but no further information is given. PAST PSYCHIATRIC HISTORY: Dementia and depression. PAST MEDICAL HISTORY: Hypertension, diabetes mellitus type 2, dyslipidemia, peptic ulcer disease, arthritis, and liver cirrhosis. MEDICATIONS: The patient has been on Zoloft 75 mg a day, Aricept 10 mg at bedtime, and olanzapine 2.5 mg daily. FAMILY AND SOCIAL HISTORY: Unobtainable. MENTAL STATUS EXAMINATION: The patient is unable to participate in meaningful conversation or make safe plan for self-care or tell me anything about her family history whether she is . She came from a nursing facility. The patient is appropriately dressed, not very well groomed. She was in bed, earlier she was mourning and would not answer any question or participate in meaningful conversation. Long and short term memory deficit, unable to tell her age, where she is, why she is here, and she was not acting in a way psychotic. Her insight and judgment is impaired. 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 DIAGNOSES: Hypertension, arthritis, dysphagia, hypertension, and urinary tract infection. PLAN: I would recommend to increase the Zoloft to 100 mg a day and will follow up with you and I am covering for Dr. Macedo. Thank you very much for allowing me to participate in the care of this most interesting lady. JOB# [id number] [facility]ERS[facility]
[2018-06-15] MEDS: cefTRIAXone 1 GM in Sodium Chloride 0.9% 50 ML IV SCH ×2 (00:06→23:33)
[2018-06-15] MEDS: Hydrocodone/APAP 5mg/325mg Tab PO PRN ×2 (05:02→15:10)
[2018-06-15] MEDS: Pantoprazole 40 mg/Packet GT SCH (06:47)
[2018-06-15] MEDS: Miconazole Nitrate 2% Antifungal Wound Cream 4 oz. Tube TP SCH ×2 (08:10→16:17)
[2018-06-15] MEDS: Lactobacillus Rhamnosus GG 15 Billion CFU CAP.SPRINK GT SCH (08:11)
[2018-06-15] MEDS: INSULIN ASPART SLIDING SCALE 100 UNITS/ML UNIT SUBQ SCH ×4 (08:12→21:17)
[2018-06-15] MEDS: Insulin Detemir 100 units/mL 10mL Vial SUBQ SCH (17:36)
--- NOTE | 2018-06-16 00:54 | Progress Notes ---
DATE: 06/15/2018 FOLLOWUP NOTE Case was discussed with staff of the patient, reviewed records. The staff reported, yesterday she had ____ she was yelling; however, when they gave her pain medications she stopped yelling. The patient needs help with her ADLs. The patient is demented, confused, unable to participate in meaningful conversation or make safe plan for self-care. I have her on Zyprexa and she ____ via the G-tube. She is on Seroquel 100 mg daily via G-tube and we will continue to follow the patient. Thank you very much for allowing me to participate in the care of this most interesting lady. [facility]# [id number]
[2018-06-16] MEDS: Pantoprazole 40 mg/Packet GT SCH (06:50)
[2018-06-16] MEDS: INSULIN ASPART SLIDING SCALE 100 UNITS/ML UNIT SUBQ SCH ×4 (06:50→21:37)
[2018-06-16] MEDS: Miconazole Nitrate 2% Antifungal Wound Cream 4 oz. Tube TP SCH ×2 (09:11→17:06)
[2018-06-16] MEDS: Lactobacillus Rhamnosus GG 15 Billion CFU CAP.SPRINK GT SCH (09:12)
[2018-06-16] MEDS: Sulfamethoxazole/TMP 800/160mg Tab PO SCH ×2 (09:12→17:05)
[2018-06-16] MEDS: Hydrocodone/APAP 5mg/325mg Tab PO PRN ×2 (10:24→17:06)
--- NOTE | 2018-06-16 14:17 | General Progress Note ---
Subjective - Review of Systems Service Date: 06/16/18 Subjective: Patient seen and examined patient was resting comfortably family was at the bedside Objective - Results Result Diagrams: 06/14/18 05:00 06/14/18 05:00 Recent Labs: Laboratory Last Values WBC 7.3 Th/cmm (4.8-10.8) 06/14/18 05:00 RBC 3.27 Mil/cmm (3.80-5.20) L 06/14/18 05:00 Hgb 10.2 gm/dL (12-16) L 06/14/18 05:00 Hct 30.3 % (41.0-60) L 06/14/18 05:00 MCV 92.7 fl (81-100) 06/14/18 05:00 MCH 31.2 pg (27.0-31.0) H 06/14/18 05:00 MCHC Differential 33.7 pg (28.0-36.0) 06/14/18 05:00 RDW 13.3 % (11.5-20.0) 06/14/18 05:00 Plt Count 146 Th/cmm (150-400) L 06/14/18 05:00 MPV 8.1 fl 06/14/18 05:00 Neutrophils % 80.2 % (40.0-80.0) H 06/14/18 05:00 Lymphocytes % 9.4 % (20.0-50.0) L 06/14/18 05:00 Monocytes % 7.3 % (2.0-10.0) 06/14/18 05:00 Eosinophils % 3.0 % (0.0-5.0) 06/14/18 05:00 Basophils % 0.1 % (0.0-2.0) 06/14/18 05:00 Neutrophils (Manual) Not Reportable 06/12/18 17:12 PT 11.2 SECONDS (9.5-11.5) 06/12/18 17:12 INR 1.08 (0.5-1.4) 06/12/18 17:12 PTT (Actin FS) 27.4 SECONDS (26.0-38.0) 06/12/18 17:12 Sodium 138 mEq/L (136-145) 06/14/18 05:00 Potassium 3.9 mEq/L (3.5-5.1) 06/14/18 05:00 Chloride 106 mEq/L (98-107) 06/14/18 05:00 Carbon Dioxide 24.7 mEq/L (21.0-31.0) 06/14/18 05:00 Anion Gap 11.2 (7.0-16.0) 06/14/18 05:00 BUN 26 mg/dL (7-25) H 06/14/18 05:00 Creatinine 0.7 mg/dL (0.6-1.2) 06/14/18 05:00 Est GFR ( Amer) TNP 06/14/18 05:00 Est GFR (Non-Af Amer) TNP 06/14/18 05:00 BUN/Creatinine Ratio 37.1 06/14/18 05:00 Glucose 228 mg/dL (70-105) H 06/14/18 05:00 POC Glucose 268 MG/DL (70 - 105) H 06/16/18 11:17 Whole Bld Lactic Acid 1.87 mmol/L (0.60-1.99) 06/12/18 17:12 Calcium 8.7 mg/dL (8.6-10.3) 06/14/18 05:00 Total Bilirubin 0.4 mg/dL (0.3-1.0) 06/14/18 05:00 AST 22 U/L (13-39) 06/14/18 05:00 ALT 19 U/L (7-52) 06/14/18 05:00 Alkaline Phosphatase 159 U/L (34-104) H 06/14/18 05:00 Ammonia 33 umol/L (16-53) 06/14/18 05:00 Creatine Kinase 56 U/L (30-223) 06/12/18 17:12 Troponin I 0.03 ng/mL (0.01-0.05) 06/12/18 17:12 Total Protein 5.6 gm/dL (6.0-8.3) L 06/14/18 05:00 Albumin 2.7 gm/dL (3.7-5.3) L 06/14/18 05:00 Globulin 2.9 gm/dL 06/14/18 05:00 Albumin/Globulin Ratio 0.9 (1.0-1.8) L 06/14/18 05:00 TSH 0.75 uIU/ml (0.34-5.60) 06/14/18 05:00 Urine Source MIDSTREAM 06/12/18 19:35 Urine Color YELLOW 06/12/18 19:35 Urine Clarity HAZY (CLEAR) 06/12/18 19:35 Urine pH 8.5 (4.6 - 8.0) 06/12/18 19:[address] 1.015 (1.005-1.030) 06/12/18 19:35 Urine Protein 30 mg/dL (NEGATIVE) H 06/12/18 19:35 Urine Glucose (UA) NEGATIVE mg/dL (NEGATIVE) 06/12/18 19:35 Urine Ketones NEGATIVE mg/dL (NEGATIVE) 06/12/18 19:35 Urine Blood SMALL (NEGATIVE) H 06/12/18 19:35 Urine Nitrate NEGATIVE (NEGATIVE) 06/12/18 19:35 Urine Bilirubin NEGATIVE (NEGATIVE) 06/12/18 19:35 Urine Urobilinogen 1.0 E.U./dL (0.2 - 1.0) 06/12/18 19:35 Ur Leukocyte Esterase LARGE (NEGATIVE) H 06/12/18 19:35 Urine RBC 2-5 /hpf (0-5) 06/12/18 19:35 Urine WBC 6-10 /hpf (0-5) H 06/12/18 19:35 Ur Epithelial Cells MODERATE /lpf (FEW) 06/12/18 19:35 Urine Bacteria 3+ /hpf (NONE SEEN) H 06/12/18 19:35 - Physical Exam Vitals and I&O: Vital Signs Temp 97.2 F 06/16/18 11:35 Pulse 84 06/16/18 11:35 Resp 18 06/16/18 11:35 BP 131/46 06/16/18 11:35 Pulse Ox 98 06/16/18 11:35 Intake & Output 06/15/18 06/16/18 06/16/18 18:59 06:59 18:59 Intake Total 1000 Balance 1000 Weight (lbs) 75.841 kg 75.75 kg Intake: Tube Feeding 800 Other 200 Other: # Voids 2 2 # Bowel Movements 1 Stool Characteristics Soft Brown Weight Source Bedscale Bedscale Active Medications: Current Medications Acetaminophen (Tylenol 650mg/20.3ml Suspension) 650 mg GT Q4H PRN PRN Reason: mild pain/temp >100.4F Acetaminophen/Hydrocodone Bitart ([place] 5mg/325mg) 1 tab PO Q4H PRN PRN Reason: Pain (Severe) Stop: 08/11/18 21:02 Last Admin: 06/16/18 10:24 Dose: 1 tab Aspirin (Ecotrin) 81 mg PO DAILY [facility] Stop: 08/12/18 08:59 Last Admin: 06/16/18 09:12 Dose: Not Given Donepezil HCl (Aricept) 10 mg GT HS [facility] Stop: 08/12/18 20:59 Last Admin: 06/15/18 21:29 Dose: 10 mg Insulin Aspart (Novolog Insulin Sliding Scale) 0 units SUBQ ACHS [facility]; Protocol Stop: 08/12/18 08:14 Last Admin: 06/16/18 12:24 Dose: 6 units Insulin Detemir (Levemir Insulin) 20 units SUBQ 1700 [facility] Stop: 08/12/18 16:59 Last Admin: 06/15/18 17:36 Dose: 20 units Lactobacillus Rhamnosus (Culturelle 15b) 1 each GT DAILY [facility] Stop: 08/12/18 08:59 Last Admin: 06/16/18 09:12 Dose: 1 each Lisinopril (Zestril) 5 mg GT HS [facility] Stop: 08/12/18 20:59 Last Admin: 06/15/18 21:10 Dose: 5 mg Miconazole Nitrate (Antifungal Wound Cream) 1 appl TP BID [facility] Stop: 08/12/18 16:59 Last Admin: 06/16/18 09:11 Dose: 1 appl Neomycin Sulfate (Neomycin) 500 mg GT BID [facility] Stop: 08/12/18 08:59 Last Admin: 06/16/18 09:13 Dose: 500 mg Olanzapine (Zyprexa) 2.5 mg GT DAILY [facility]; Protocol Stop: 08/12/18 08:59 Last Admin: 06/16/18 09:12 Dose: 2.5 mg Pantoprazole Sodium (Protonix) 40 mg GT QDAC [facility] Stop: 08/12/18 07:29 Last Admin: 06/16/18 06:50 Dose: 40 mg Quetiapine Fumarate (Seroquel) 100 mg GT DAILY [facility]; Protocol Stop: 08/14/18 08:59 Last Admin: 06/16/18 09:12 Dose: 100 mg Trimethoprim/Sulfamethoxazole (Bactrim Ds) 0.5 tab PO BID [facility] Stop: 08/15/18 08:59 Last Admin: 06/16/18 09:12 Dose: 0.5 tab Cardiovascular: Regular rate Lungs: Clear to auscultation - Procedures Procedures: Procedures Procedure Code Date GROUP PSYCHOTHERAPY 18006 10/16/15 GROUP PSYCHOTHERAPY GZHZZZZ 10/16/15 OTHER GROUP THERAPY 94.44 11/01/06 Assessment/Plan - Assessment Assessment: Altered mental state UTI Dysphagia Dementia - Plan Plan: Puree diet G tube feeding Daughter was updated on patient's condition Continue antibiotics Psych follow up Nutritional Asmnt/Malnutr-PDOC - Dietary Evaluation Malnutrition Findings (Please click <Entered> for more info): Nutritional Asmnt/Malnutrition Start: 06/13/18 15: 43 Text: Status: Complete Freq: Protocol: Document 06/13/18 15:43 LCHENG (Rec: 06/13/18 16:21 [id number]) Nutritional Asmnt/Malnutrition Patient General Information Nutritional Screening High Risk Consult Diagnosis UTI, dehydration Pertinent Medical Hx/Surgical Hx HTN, DM, dyslipidemia, PUD/ GERD, arthritis, dementia, cirrhosis, PEG/GERD, depression, bipolar Subjective Information Consult received for buttocks intertrigo/wound. Pt seen sleeping at time of visit. TF was seen running at 70ml/hr at this time. Current Diet Order/ Nutrition Support glucerna 1.2 at 70ml/hr x 20hr Pertinent Medications novolog, levemir, culturelle, protonix Pertinent Labs 06/13 POC 244-279 06/12 BUN 31, Glucose 202, alb 3.1 Nutritional Hx/Data Height 1.7 m Height (Calculated Centimeters) 170.2 Current Weight (lbs) 74.843 kg Weight (Calculated Kilograms) 74.8 Weight (Calculated Grams) 27082.7 [place] Body Weight 135 Body Mass Index (BMI) 25.8 Weight Status Overweight GI Symptoms GI Symptoms None Last BM 06/13 Difficult in: None Skin Integrity/Comment: rash to perinium, pressure area reddened to buttocks, reddened to anterior vagina, GT sites, R/L lower legs, bruise to right upper arm Estimated Nutritional Goals Calories/Kcals/Kg 25-30 IBW 61kg Kcals Calculated 7981-7291 Protein g/k-1.2 Protein Calculated 61-73 Fluid: ml 1525-1830ml (1ml/kcal) Nutritional Problem 1. Problem Problem altered nutrition related labs Etiology hyperglycemia, endocrine dysfunction Signs/Symptoms: glucose 202, POC 182-279 Intervention/Recommendation Comments 1. Continue with current TF regimen Glucerna 1.2 70ml/hr x 20hr. It provides 1680kcal, 84g protein, 1127ml free water , meeting 100% of nutritional needs. 2. Monitor TF rate, tolerance, wt, skin integrity and labs. MD to adjust insulin for optimal glycemic control. 3. F/U as moderate risk in 3-5 days, 06/16-06/18 Expected Outcomes/Goals Expected Outcomes/Goals 1. Pt to meet at least 90% of nutritional needs via nutrition support with tolerance 2. Wt stability, skin to remain intact, labs to approach WNL.
--- NOTE | 2018-06-16 17:06 | Progress Notes ---
DATE: 06/15/2018 INFECTIOUS DISEASE PROGRESS NOTE SUBJECTIVE: The patient lying in bed, not in acute distress. No fever, no chills. PHYSICAL EXAMINATION: VITAL SIGNS: Current vital signs show temperature is 97.5 degrees Fahrenheit, pulse 84, respirations 18, blood pressure 124/53. GENERAL: The patient is comfortable lying in the bed, not in acute distress. HEENT: Head is normocephalic, atraumatic. Oral cavity moist, pink tongue. Eyes: No pallor, no icterus. PERRLA, EOMI. NECK: Supple, no JVD, no bruit. Trachea midline. CHEST: Bilateral breath sounds. No crackles or wheezing. HEART: S1, S2 within normal limits. Regular rhythm. No murmur, no gallop. ABDOMEN: Soft, nontender, nondistended. Bowel sounds present. EXTREMITIES: No cyanosis, no clubbing, no edema. NEUROLOGIC: Alert, awake. CURRENT LABORATORY DATA: Shows WBC count is 7300, hemoglobin 10.2, platelets are 146,000, neutrophil is 138, potassium 3.9, chloride 106, bicarbonate is 25, BUN is 26, creatinine 0.7, glucose is 228. Urine culture grew multiple organisms. IMPRESSION: 1. Urinary tract infection. 2. Dementia. 3. Hypertension. 4. Diabetes mellitus type 2. RECOMMENDATION: We will change the Rocephin to Bactrim. JOB# [id number]
[2018-06-16] MEDS: Insulin Detemir 100 units/mL 10mL Vial SUBQ SCH (17:18)
--- NOTE | 2018-06-17 01:15 | Progress Notes ---
DATE: 06/16/2018 Case was discussed with staff of the patient. The patient was yelling and screaming when the staff tried to help with ADLs. She is demented, confused. I do not think this could be go away with medication because the patient is demented, confused as normal reaction for people to be resistant to that kind of care, because very sensitive that I do not think there is any medication that would make that ever different. She is on Zyprexa 2.5 mg at bedtime and Seroquel 200 mg at bedtime with no side effects. The patient can go back to the nursing facility and the nursing facility, usually they are used to that kind of reaction from the patient, so I do not think we need to adjust medication for that. Thank you very much for allowing me to participate in the care of this most interesting lady. JOB# [id number]
[2018-06-17] MEDS: Pantoprazole 40 mg/Packet GT SCH (06:33)
[2018-06-17] MEDS: INSULIN ASPART SLIDING SCALE 100 UNITS/ML UNIT SUBQ SCH ×4 (06:34→22:39)
--- NOTE | 2018-06-17 06:34 | Progress Notes ---
DATE: 06/16/2018 INFECTIOUS DISEASE PROGRESS NOTE SUBJECTIVE: VITAL SIGNS: Current vital signs show temperature is 98.7, pulse 91, respirations 18, and blood pressure 117/48. GENERAL: The patient is comfortable lying in the bed, not in acute distress. HEENT: Head is normocephalic, atraumatic. Oral cavity moist, pink tongue. Eyes: No pallor, no icterus. PERRLA, EOMI. NECK: Supple, no JVD, no carotid bruit. Trachea midline. CHEST: Bilateral breath sounds. No crackles or wheezing. HEART: S1, S2 within normal limits. Regular rhythm. No murmur, no gallop. ABDOMEN: Soft, nontender, nondistended. Bowel sounds present. EXTREMITIES: No cyanosis, no clubbing, no edema. NEUROLOGIC: Alert and awake. LABORATORY DATA: Current lab shows WBC count 7300. IMPRESSION: 1. Urinary tract infection. 2. Dementia. 3. Hypertension. 4. Diabetes mellitus type 2. 5. Psychosis, agitation. RECOMMENDATION: Continue Bactrim at this time. JOB# [id number]
[2018-06-17] MEDS: Sulfamethoxazole/TMP 800/160mg Tab PO SCH ×2 (08:51→16:23)
[2018-06-17] MEDS: Miconazole Nitrate 2% Antifungal Wound Cream 4 oz. Tube TP SCH ×2 (08:51→16:23)
[2018-06-17] MEDS: Lactobacillus Rhamnosus GG 15 Billion CFU CAP.SPRINK GT SCH (08:51)
--- NOTE | 2018-06-17 10:05 | Diagnostic Imaging Report ---
Exam: Ultrasound summation kidneys HISTORY: Hydronephrosis, pyelonephritis. Findings: Real-time ultrasound summation kidneys performed multiple planes. The study is limited due to patient inability to cooperate. Right kidney measures 10.0 x 5.3 x 5.8 cm. Left kidney measures 9.9 x 5.5 x 3.7 cm diameter. There is no evidence of obstructive uropathy nephrolithiasis. Urinary bladder is not visualized IMPRESSION Limited examination due to patient inability to cooperate. No evidence of obstructive uropathy. No evidence for nephrolithiasis.
[2018-06-17] MEDS: Insulin Detemir 100 units/mL 10mL Vial SUBQ SCH (17:03)
--- NOTE | 2018-06-17 20:18 | General Progress Note ---
Subjective - Review of Systems Service Date: 06/17/18 Subjective: Patient seen and examined seems better more alert Objective - Results Result Diagrams: 06/14/18 05:00 06/14/18 05:00 Recent Labs: Laboratory Last Values WBC 7.3 Th/cmm (4.8-10.8) 06/14/18 05:00 RBC 3.27 Mil/cmm (3.80-5.20) L 06/14/18 05:00 Hgb 10.2 gm/dL (12-16) L 06/14/18 05:00 Hct 30.3 % (41.0-60) L 06/14/18 05:00 MCV 92.7 fl (81-100) 06/14/18 05:00 MCH 31.2 pg (27.0-31.0) H 06/14/18 05:00 MCHC Differential 33.7 pg (28.0-36.0) 06/14/18 05:00 RDW 13.3 % (11.5-20.0) 06/14/18 05:00 Plt Count 146 Th/cmm (150-400) L 06/14/18 05:00 MPV 8.1 fl 06/14/18 05:00 Neutrophils % 80.2 % (40.0-80.0) H 06/14/18 05:00 Lymphocytes % 9.4 % (20.0-50.0) L 06/14/18 05:00 Monocytes % 7.3 % (2.0-10.0) 06/14/18 05:00 Eosinophils % 3.0 % (0.0-5.0) 06/14/18 05:00 Basophils % 0.1 % (0.0-2.0) 06/14/18 05:00 Neutrophils (Manual) Not Reportable 06/12/18 17:12 PT 11.2 SECONDS (9.5-11.5) 06/12/18 17:12 INR 1.08 (0.5-1.4) 06/12/18 17:12 PTT (Actin FS) 27.4 SECONDS (26.0-38.0) 06/12/18 17:12 Sodium 138 mEq/L (136-145) 06/14/18 05:00 Potassium 3.9 mEq/L (3.5-5.1) 06/14/18 05:00 Chloride 106 mEq/L (98-107) 06/14/18 05:00 Carbon Dioxide 24.7 mEq/L (21.0-31.0) 06/14/18 05:00 Anion Gap 11.2 (7.0-16.0) 06/14/18 05:00 BUN 26 mg/dL (7-25) H 06/14/18 05:00 Creatinine 0.7 mg/dL (0.6-1.2) 06/14/18 05:00 Est GFR ( Amer) TNP 06/14/18 05:00 Est GFR (Non-Af Amer) TNP 06/14/18 05:00 BUN/Creatinine Ratio 37.1 06/14/18 05:00 Glucose 228 mg/dL (70-105) H 06/14/18 05:00 POC Glucose 232 MG/DL (70 - 105) H 06/17/18 16:14 Whole Bld Lactic Acid 1.87 mmol/L (0.60-1.99) 06/12/18 17:12 Calcium 8.7 mg/dL (8.6-10.3) 06/14/18 05:00 Total Bilirubin 0.4 mg/dL (0.3-1.0) 06/14/18 05:00 AST 22 U/L (13-39) 06/14/18 05:00 ALT 19 U/L (7-52) 06/14/18 05:00 Alkaline Phosphatase 159 U/L (34-104) H 06/14/18 05:00 Ammonia 33 umol/L (16-53) 06/14/18 05:00 Creatine Kinase 56 U/L (30-223) 06/12/18 17:12 Troponin I 0.03 ng/mL (0.01-0.05) 06/12/18 17:12 Total Protein 5.6 gm/dL (6.0-8.3) L 06/14/18 05:00 Albumin 2.7 gm/dL (3.7-5.3) L 06/14/18 05:00 Globulin 2.9 gm/dL 06/14/18 05:00 Albumin/Globulin Ratio 0.9 (1.0-1.8) L 06/14/18 05:00 TSH 0.75 uIU/ml (0.34-5.60) 06/14/18 05:00 Urine Source MIDSTREAM 06/12/18 19:35 Urine Color YELLOW 06/12/18 19:35 Urine Clarity HAZY (CLEAR) 06/12/18 19:35 Urine pH 8.5 (4.6 - 8.0) 06/12/18 19:35 Ur Specific [place] 1.015 (1.005-1.030) 06/12/18 19:35 Urine Protein 30 mg/dL (NEGATIVE) H 06/12/18 19:35 Urine Glucose (UA) NEGATIVE mg/dL (NEGATIVE) 06/12/18 19:35 Urine Ketones NEGATIVE mg/dL (NEGATIVE) 06/12/18 19:35 Urine Blood SMALL (NEGATIVE) H 06/12/18 19:35 Urine Nitrate NEGATIVE (NEGATIVE) 06/12/18 19:35 Urine Bilirubin NEGATIVE (NEGATIVE) 06/12/18 19:35 Urine Urobilinogen 1.0 E.U./dL (0.2 - 1.0) 06/12/18 19:35 Ur Leukocyte Esterase LARGE (NEGATIVE) H 06/12/18 19:35 Urine RBC 2-5 /hpf (0-5) 06/12/18 19:35 Urine WBC 6-10 /hpf (0-5) H 06/12/18 19:35 Ur Epithelial Cells MODERATE /lpf (FEW) 06/12/18 19:35 Urine Bacteria 3+ /hpf (NONE SEEN) H 06/12/18 19:35 - Physical Exam Vitals and I&O: Vital Signs Temp 99.3 F 06/17/18 20:00 Pulse 92 06/17/18 20:00 Resp 19 06/17/18 20:00 BP 111/42 06/17/18 20:00 Pulse Ox 98 06/17/18 20:00 Intake & Output 06/17/18 06/17/18 06/18/18 06:59 18:59 06:59 Intake Total 840 770 Balance 840 770 Weight (lbs) 73.936 kg 73.981 kg 74.843 kg Intake: Tube Feeding 840 770 Other: # Voids 3 2 # Bowel Movements 1 Stool Characteristics Soft Brown Weight Source Bedscale Bedscale Bedscale Active Medications: Current Medications Acetaminophen (Tylenol 650mg/20.3ml Suspension) 650 mg GT Q4H PRN PRN Reason: mild pain/temp >100.4F Acetaminophen/Hydrocodone Bitart ([place] 5mg/325mg) 1 tab PO Q4H PRN PRN Reason: Pain (Severe) Stop: 08/11/18 21:02 Last Admin: 06/16/18 17:06 Dose: 1 tab Aspirin (Ecotrin) 81 mg PO DAILY [facility] Stop: 08/12/18 08:59 Last Admin: 06/17/18 08:52 Dose: Not Given Donepezil HCl (Aricept) 10 mg GT HS [facility] Stop: 08/12/18 20:59 Last Admin: 06/16/18 20:56 Dose: 10 mg Insulin Aspart (Novolog Insulin Sliding Scale) 0 units SUBQ ACHS [facility]; Protocol Stop: 08/12/18 08:14 Last Admin: 06/17/18 16:24 Dose: 4 units Insulin Detemir (Levemir Insulin) 20 units SUBQ 1700 [facility] Stop: 08/12/18 16:59 Last Admin: 06/17/18 17:03 Dose: 20 units Lactobacillus Rhamnosus (Culturelle 15b) 1 each GT DAILY [facility] Stop: 08/12/18 08:59 Last Admin: 06/17/18 08:51 Dose: 1 each Lisinopril (Zestril) 5 mg GT [facility] Stop: 08/12/18 20:59 Last Admin: 06/16/18 21:04 Dose: 5 mg Miconazole Nitrate (Antifungal Wound Cream) 1 appl TP BID [facility] Stop: 08/12/18 16:59 Last Admin: 06/17/18 16:23 Dose: 1 appl Neomycin Sulfate (Neomycin) 500 mg GT BID [facility] Stop: 08/12/18 08:59 Last Admin: 06/17/18 16:24 Dose: 500 mg Olanzapine (Zyprexa) 5 mg PO BID [facility]; Protocol Stop: 08/15/18 16:59 Last Admin: 06/17/18 16:24 Dose: 5 mg Pantoprazole Sodium (Protonix) 40 mg GT QDAC [facility] Stop: 08/12/18 07:29 Last Admin: 06/17/18 06:33 Dose: 40 mg Quetiapine Fumarate (Seroquel) 100 mg GT HS [facility]; Protocol Stop: 08/15/18 20:59 Last Admin: 06/16/18 20:56 Dose: 100 mg Trimethoprim/Sulfamethoxazole (Bactrim Ds) 0.5 tab PO BID [facility] Stop: 08/15/18 08:59 Last Admin: 06/17/18 16:23 Dose: 0.5 tab Cardiovascular: Regular rate Lungs: Clear to auscultation - Procedures Procedures: Procedures Procedure Code Date GROUP PSYCHOTHERAPY 05550 10/16/15 GROUP PSYCHOTHERAPY GZHZZZZ 10/16/15 OTHER GROUP THERAPY 94.44 11/01/06 Assessment/Plan - Assessment Assessment: Altered mental state improving UTI Dysphagia Dementia - Plan Plan: Puree diet G tube feeding Continue antibiotics Psych follow up Plan of care discussed with nursing staff Nutritional Asmnt/Malnutr-PDOC - Dietary Evaluation Malnutrition Findings (Please click <Entered> for more info): Nutritional Asmnt/Malnutrition Start: 06/13/18 15: 43 Text: Status: Complete Freq: Protocol: Document 06/13/18 15:43 LCHENG (Rec: 06/13/18 16:21 [email or web address]) Nutritional Asmnt/Malnutrition Patient General Information Nutritional Screening High Risk Consult Diagnosis UTI, dehydration Pertinent Medical Hx/Surgical Hx HTN, DM, dyslipidemia, PUD/ GERD, arthritis, dementia, cirrhosis, PEG/GERD, depression, bipolar Subjective Information Consult received for buttocks intertrigo/wound. Pt seen sleeping at time of visit. TF was seen running at 70ml/hr at this time. Current Diet Order/ Nutrition Support glucerna 1.2 at 70ml/hr x 20hr Pertinent Medications novolog, levemir, culturelle, protonix Pertinent Labs 06/13 POC [id number] 06/12 BUN 31, Glucose 202, alb 3.1 Nutritional Hx/Data Height 1.7 m Height (Calculated Centimeters) 170.2 Current Weight (lbs) 74.843 kg Weight (Calculated Kilograms) 74.8 Weight (Calculated Grams) 34542.7 [place] Body Weight 135 Body Mass Index (BMI) 25.8 Weight Status Overweight GI Symptoms GI Symptoms None Last BM 06/13 Difficult in: None Skin Integrity/Comment: rash to perinium, pressure area reddened to buttocks, reddened to anterior vagina, GT sites, R/L lower legs, bruise to right upper arm Estimated Nutritional Goals Calories/Kcals/Kg 25-30 IBW 61kg Kcals Calculated 7958-6980 Protein g/k-1.2 Protein Calculated 61-73 Fluid: ml 1525-1830ml (1ml/kcal) Nutritional Problem 1. Problem Problem altered nutrition related labs Etiology hyperglycemia, endocrine dysfunction Signs/Symptoms: glucose 202, POC 182-279 Intervention/Recommendation Comments 1. Continue with current TF regimen Glucerna 1.2 70ml/hr x 20hr. It provides 1680kcal, 84g protein, 1127ml free water , meeting 100% of nutritional needs. 2. Monitor TF rate, tolerance, wt, skin integrity and labs. MD to adjust insulin for optimal glycemic control. 3. F/U as moderate risk in 3-5 days, 06/16-06/18 Expected Outcomes/Goals Expected Outcomes/Goals 1. Pt to meet at least 90% of nutritional needs via nutrition support with tolerance 2. Wt stability, skin to remain intact, labs to approach WNL.
--- NOTE | 2018-06-17 21:51 | Infectious Disease Prog Note ---
Infectious Disease Subjective - Review of Systems Service Date: 06/17/18 Subjective: There is no new change, no fever. Infectious Disease Objective - Results Result Diagrams: 06/14/18 05:00 06/14/18 05:00 Recent Labs: Laboratory Last Values WBC 7.3 Th/cmm (4.8-10.8) 06/14/18 05:00 RBC 3.27 Mil/cmm (3.80-5.20) L 06/14/18 05:00 Hgb 10.2 gm/dL (12-16) L 06/14/18 05:00 Hct 30.3 % (41.0-60) L 06/14/18 05:00 MCV 92.7 fl (81-100) 06/14/18 05:00 MCH 31.2 pg (27.0-31.0) H 06/14/18 05:00 MCHC Differential 33.7 pg (28.0-36.0) 06/14/18 05:00 RDW 13.3 % (11.5-20.0) 06/14/18 05:00 Plt Count 146 Th/cmm (150-400) L 06/14/18 05:00 MPV 8.1 fl 06/14/18 05:00 Neutrophils % 80.2 % (40.0-80.0) H 06/14/18 05:00 Lymphocytes % 9.4 % (20.0-50.0) L 06/14/18 05:00 Monocytes % 7.3 % (2.0-10.0) 06/14/18 05:00 Eosinophils % 3.0 % (0.0-5.0) 06/14/18 05:00 Basophils % 0.1 % (0.0-2.0) 06/14/18 05:00 Neutrophils (Manual) Not Reportable 06/12/18 17:12 PT 11.2 SECONDS (9.5-11.5) 06/12/18 17:12 INR 1.08 (0.5-1.4) 06/12/18 17:12 PTT (Actin FS) 27.4 SECONDS (26.0-38.0) 06/12/18 17:12 Sodium 138 mEq/L (136-145) 06/14/18 05:00 Potassium 3.9 mEq/L (3.5-5.1) 06/14/18 05:00 Chloride 106 mEq/L (98-107) 06/14/18 05:00 Carbon Dioxide 24.7 mEq/L (21.0-31.0) 06/14/18 05:00 Anion Gap 11.2 (7.0-16.0) 06/14/18 05:00 BUN 26 mg/dL (7-25) H 06/14/18 05:00 Creatinine 0.7 mg/dL (0.6-1.2) 06/14/18 05:00 Est GFR ( Amer) TNP 06/14/18 05:00 Est GFR (Non-Af Amer) TNP 06/14/18 05:00 BUN/Creatinine Ratio 37.1 06/14/18 05:00 Glucose 228 mg/dL (70-105) H 06/14/18 05:00 POC Glucose 232 MG/DL (70 - 105) H 06/17/18 16:14 Whole Bld Lactic Acid 1.87 mmol/L (0.60-1.99) 06/12/18 17:12 Calcium 8.7 mg/dL (8.6-10.3) 06/14/18 05:00 Total Bilirubin 0.4 mg/dL (0.3-1.0) 06/14/18 05:00 AST 22 U/L (13-39) 06/14/18 05:00 ALT 19 U/L (7-52) 06/14/18 05:00 Alkaline Phosphatase 159 U/L (34-104) H 06/14/18 05:00 Ammonia 33 umol/L (16-53) 06/14/18 05:00 Creatine Kinase 56 U/L (30-223) 06/12/18 17:12 Troponin I 0.03 ng/mL (0.01-0.05) 06/12/18 17:12 Total Protein 5.6 gm/dL (6.0-8.3) L 06/14/18 05:00 Albumin 2.7 gm/dL (3.7-5.3) L 06/14/18 05:00 Globulin 2.9 gm/dL 06/14/18 05:00 Albumin/Globulin Ratio 0.9 (1.0-1.8) L 06/14/18 05:00 TSH 0.75 uIU/ml (0.34-5.60) 06/14/18 05:00 Urine Source MIDSTREAM 06/12/18 19:35 Urine Color YELLOW 06/12/18 19:35 Urine Clarity HAZY (CLEAR) 06/12/18 19:35 Urine pH 8.5 (4.6 - 8.0) 06/12/18 19:35 Ur Specific [place] 1.015 (1.005-1.030) 06/12/18 19:35 Urine Protein 30 mg/dL (NEGATIVE) H 06/12/18 19:35 Urine Glucose (UA) NEGATIVE mg/dL (NEGATIVE) 06/12/18 19:35 Urine Ketones NEGATIVE mg/dL (NEGATIVE) 06/12/18 19:35 Urine Blood SMALL (NEGATIVE) H 06/12/18 19:35 Urine Nitrate NEGATIVE (NEGATIVE) 06/12/18 19:35 Urine Bilirubin NEGATIVE (NEGATIVE) 06/12/18 19:35 Urine Urobilinogen 1.0 E.U./dL (0.2 - 1.0) 06/12/18 19:35 Ur Leukocyte Esterase LARGE (NEGATIVE) H 06/12/18 19:35 Urine RBC 2-5 /hpf (0-5) 06/12/18 19:35 Urine WBC 6-10 /hpf (0-5) H 06/12/18 19:35 Ur Epithelial Cells MODERATE /lpf (FEW) 06/12/18 19:35 Urine Bacteria 3+ /hpf (NONE SEEN) H 06/12/18 19:35 - Physical Exam Vitals and I&O: Vital Signs Temp 99.3 F 06/17/18 20:00 Pulse 92 06/17/18 20:00 Resp 19 06/17/18 20:00 BP 111/42 06/17/18 20:00 Pulse Ox 98 06/17/18 20:00 Intake & Output 06/17/18 06/17/18 06/18/18 06:59 18:59 06:59 Intake Total 840 770 Balance 840 770 Weight (lbs) 73.936 kg 73.981 kg 74.843 kg Intake: Tube Feeding 840 770 Other: # Voids 3 2 # Bowel Movements 1 Stool Characteristics Soft Brown Weight Source Bedscale Bedscale Bedscale Active Medications: Current Medications Acetaminophen (Tylenol 650mg/20.3ml Suspension) 650 mg GT Q4H PRN PRN Reason: mild pain/temp >100.4F Acetaminophen/Hydrocodone Bitart ([place] 5mg/325mg) 1 tab PO Q4H PRN PRN Reason: Pain (Severe) Stop: 08/11/18 21:02 Last Admin: 06/16/18 17:06 Dose: 1 tab Aspirin (Ecotrin) 81 mg PO DAILY [facility] Stop: 08/12/18 08:59 Last Admin: 06/17/18 08:52 Dose: Not Given Donepezil HCl (Aricept) 10 mg GT HS [facility] Stop: 08/12/18 20:59 Last Admin: 06/16/18 20:56 Dose: 10 mg Insulin Aspart (Novolog Insulin Sliding Scale) 0 units SUBQ ACHS [facility]; Protocol Stop: 08/12/18 08:14 Last Admin: 06/17/18 16:24 Dose: 4 units Insulin Detemir (Levemir Insulin) 20 units SUBQ 1700 [facility] Stop: 08/12/18 16:59 Last Admin: 06/17/18 17:03 Dose: 20 units Lactobacillus Rhamnosus (Culturelle 15b) 1 each GT DAILY [facility] Stop: 08/12/18 08:59 Last Admin: 06/17/18 08:51 Dose: 1 each Lisinopril (Zestril) 5 mg GT HS [facility] Stop: 08/12/18 20:59 Last Admin: 06/16/18 21:04 Dose: 5 mg Miconazole Nitrate (Antifungal Wound Cream) 1 appl TP BID [facility] Stop: 08/12/18 16:59 Last Admin: 06/17/18 16:23 Dose: 1 appl Neomycin Sulfate (Neomycin) 500 mg GT BID [facility] Stop: 08/12/18 08:59 Last Admin: 06/17/18 16:24 Dose: 500 mg Olanzapine (Zyprexa) 5 mg PO BID [facility]; Protocol Stop: 08/15/18 16:59 Last Admin: 06/17/18 16:24 Dose: 5 mg Pantoprazole Sodium (Protonix) 40 mg GT QDAC [facility] Stop: 08/12/18 07:29 Last Admin: 06/17/18 06:33 Dose: 40 mg Quetiapine Fumarate (Seroquel) 100 mg GT HS [facility]; Protocol Stop: 08/15/18 20:59 Last Admin: 06/16/18 20:56 Dose: 100 mg Trimethoprim/Sulfamethoxazole (Bactrim Ds) 0.5 tab PO BID [facility] Stop: 08/15/18 08:59 Last Admin: 06/17/18 16:23 Dose: 0.5 tab General: no acute distress, well developed, well nourished HEENT: atraumatic, normocephalic, PERRLA, EOMI, moist mucous membrane Neck: supple, no thyromegaly Cardiovascular: S1S2, regular Lungs: clear to auscultation bilaterally, clear to percussion Abdomen: soft, no tender, no distended Extremities: no cyanosis, no clubbing, no edema Neurological: awake, alert, oriented Skin: intact - Procedures Procedures: Procedures Procedure Code Date GROUP PSYCHOTHERAPY 62634 10/16/15 GROUP PSYCHOTHERAPY GZHZZZZ 10/16/15 OTHER GROUP THERAPY 94.44 11/01/06 Infectious Disease Assmt/Plan - Assessment Assessment: 1. Urinary tract infection. 2. Dementia. 3. Hypertension. 4. Diabetes mellitus type 2. - Plan Plan: Continue Rocephin. Nutritional Asmnt/Malnutr-PDOC - Dietary Evaluation Malnutrition Findings (Please click <Entered> for more info): Nutritional Asmnt/Malnutrition Start: 06/13/18 15: 43 Text: Status: Complete Freq: Protocol: Document 06/13/18 15:43 LCHENG (Rec: 06/13/18 16:21 [email or web address]) Nutritional Asmnt/Malnutrition Patient General Information Nutritional Screening High Risk Consult Diagnosis UTI, dehydration Pertinent Medical Hx/Surgical Hx HTN, DM, dyslipidemia, PUD/ GERD, arthritis, dementia, cirrhosis, PEG/GERD, depression, bipolar Subjective Information Consult received for buttocks intertrigo/wound. Pt seen sleeping at time of visit. TF was seen running at 70ml/hr at this time. Current Diet Order/ Nutrition Support glucerna 1.2 at 70ml/hr x 20hr Pertinent Medications novolog, levemir, culturelle, protonix Pertinent Labs 06/13 POC [id number] 06/12 BUN 31, Glucose 202, alb 3.1 Nutritional Hx/Data Height 1.7 m Height (Calculated Centimeters) 170.2 Current Weight (lbs) 74.843 kg Weight (Calculated Kilograms) 74.8 Weight (Calculated Grams) 57864.7 [place] Body Weight 135 Body Mass Index (BMI) 25.8 Weight Status Overweight GI Symptoms GI Symptoms None Last BM 06/13 Difficult in: None Skin Integrity/Comment: rash to perinium, pressure area reddened to buttocks, reddened to anterior vagina, GT sites, R/L lower legs, bruise to right upper arm Estimated Nutritional Goals Calories/Kcals/Kg 25-30 IBW 61kg Kcals Calculated 6423-2861 Protein g/k-1.2 Protein Calculated 61-73 Fluid: ml 1525-1830ml (1ml/kcal) Nutritional Problem 1. Problem Problem altered nutrition related labs Etiology hyperglycemia, endocrine dysfunction Signs/Symptoms: glucose 202, POC 182-279 Intervention/Recommendation Comments 1. Continue with current TF regimen Glucerna 1.2 70ml/hr x 20hr. It provides 1680kcal, 84g protein, 1127ml free water , meeting 100% of nutritional needs. 2. Monitor TF rate, tolerance, wt, skin integrity and labs. MD to adjust insulin for optimal glycemic control. 3. F/U as moderate risk in 3-5 days, 06/16-06/18 Expected Outcomes/Goals Expected Outcomes/Goals 1. Pt to meet at least 90% of nutritional needs via nutrition support with tolerance 2. Wt stability, skin to remain intact, labs to approach WNL.
--- NOTE | 2018-06-17 23:19 | Progress Notes ---
DATE: 06/17/2018 SUBJECTIVE: Case was discussed with staff of the patient. The patient is demented, confused. Apparently, the family called yesterday and Dr. Macedo talked to them. I discussed with staff that the patient do not not think that she will get any better. She is demented, confused, and when she gets upset when they take care of her ADLs as expected. The patient will be discharged soon. Dr. Macedo apparently order to increase her Seroquel dose and so far no side effects with the medication. No extrapyramidal symptoms. No sedation, no nausea. Thank you very much for allowing me to participate in the care of this most interesting lady. JOB# [id number]
[2018-06-18] MEDS: Pantoprazole 40 mg/Packet GT SCH (07:00)
[2018-06-18] MEDS: INSULIN ASPART SLIDING SCALE 100 UNITS/ML UNIT SUBQ SCH ×4 (07:00→21:20)
[2018-06-18] MEDS ORDERED: Probiotic Screen MC PRN (10:28)
[2018-06-18] MEDS: Lactobacillus Rhamnosus GG 15 Billion CFU CAP.SPRINK GT SCH (10:51)
[2018-06-18] MEDS: Sulfamethoxazole/TMP 800/160mg Tab PO SCH ×2 (10:57→17:42)
[2018-06-18] MEDS: Miconazole Nitrate 2% Antifungal Wound Cream 4 oz. Tube TP SCH ×2 (10:59→17:43)
--- NOTE | 2018-06-18 13:57 | Infectious Disease Prog Note ---
Infectious Disease Subjective - Review of Systems Service Date: 06/18/18 Subjective: There is no new change, no fever. Infectious Disease Objective - Results Result Diagrams: 06/14/18 05:00 06/14/18 05:00 Recent Labs: Laboratory Last Values WBC 7.3 Th/cmm (4.8-10.8) 06/14/18 05:00 RBC 3.27 Mil/cmm (3.80-5.20) L 06/14/18 05:00 Hgb 10.2 gm/dL (12-16) L 06/14/18 05:00 Hct 30.3 % (41.0-60) L 06/14/18 05:00 MCV 92.7 fl (81-100) 06/14/18 05:00 MCH 31.2 pg (27.0-31.0) H 06/14/18 05:00 MCHC Differential 33.7 pg (28.0-36.0) 06/14/18 05:00 RDW 13.3 % (11.5-20.0) 06/14/18 05:00 Plt Count 146 Th/cmm (150-400) L 06/14/18 05:00 MPV 8.1 fl 06/14/18 05:00 Neutrophils % 80.2 % (40.0-80.0) H 06/14/18 05:00 Lymphocytes % 9.4 % (20.0-50.0) L 06/14/18 05:00 Monocytes % 7.3 % (2.0-10.0) 06/14/18 05:00 Eosinophils % 3.0 % (0.0-5.0) 06/14/18 05:00 Basophils % 0.1 % (0.0-2.0) 06/14/18 05:00 Neutrophils (Manual) Not Reportable 06/12/18 17:12 PT 11.2 SECONDS (9.5-11.5) 06/12/18 17:12 INR 1.08 (0.5-1.4) 06/12/18 17:12 PTT (Actin FS) 27.4 SECONDS (26.0-38.0) 06/12/18 17:12 Sodium 138 mEq/L (136-145) 06/14/18 05:00 Potassium 3.9 mEq/L (3.5-5.1) 06/14/18 05:00 Chloride 106 mEq/L (98-107) 06/14/18 05:00 Carbon Dioxide 24.7 mEq/L (21.0-31.0) 06/14/18 05:00 Anion Gap 11.2 (7.0-16.0) 06/14/18 05:00 BUN 26 mg/dL (7-25) H 06/14/18 05:00 Creatinine 0.7 mg/dL (0.6-1.2) 06/14/18 05:00 Est GFR ( Amer) TNP 06/14/18 05:00 Est GFR (Non-Af Amer) TNP 06/14/18 05:00 BUN/Creatinine Ratio 37.1 06/14/18 05:00 Glucose 228 mg/dL (70-105) H 06/14/18 05:00 POC Glucose 211 MG/DL (70 - 105) H 06/18/18 11:16 Whole Bld Lactic Acid 1.87 mmol/L (0.60-1.99) 06/12/18 17:12 Calcium 8.7 mg/dL (8.6-10.3) 06/14/18 05:00 Total Bilirubin 0.4 mg/dL (0.3-1.0) 06/14/18 05:00 AST 22 U/L (13-39) 06/14/18 05:00 ALT 19 U/L (7-52) 06/14/18 05:00 Alkaline Phosphatase 159 U/L (34-104) H 06/14/18 05:00 Ammonia 33 umol/L (16-53) 06/14/18 05:00 Creatine Kinase 56 U/L (30-223) 06/12/18 17:12 Troponin I 0.03 ng/mL (0.01-0.05) 06/12/18 17:12 Total Protein 5.6 gm/dL (6.0-8.3) L 06/14/18 05:00 Albumin 2.7 gm/dL (3.7-5.3) L 06/14/18 05:00 Globulin 2.9 gm/dL 06/14/18 05:00 Albumin/Globulin Ratio 0.9 (1.0-1.8) L 06/14/18 05:00 TSH 0.75 uIU/ml (0.34-5.60) 06/14/18 05:00 Urine Source MIDSTREAM 06/12/18 19:35 Urine Color YELLOW 06/12/18 19:35 Urine Clarity HAZY (CLEAR) 06/12/18 19:35 Urine pH 8.5 (4.6 - 8.0) 06/12/18 19:35 Ur Specific [place] 1.015 (1.005-1.030) 06/12/18 19:35 Urine Protein 30 mg/dL (NEGATIVE) H 06/12/18 19:35 Urine Glucose (UA) NEGATIVE mg/dL (NEGATIVE) 06/12/18 19:35 Urine Ketones NEGATIVE mg/dL (NEGATIVE) 06/12/18 19:35 Urine Blood SMALL (NEGATIVE) H 06/12/18 19:35 Urine Nitrate NEGATIVE (NEGATIVE) 06/12/18 19:35 Urine Bilirubin NEGATIVE (NEGATIVE) 06/12/18 19:35 Urine Urobilinogen 1.0 E.U./dL (0.2 - 1.0) 06/12/18 19:35 Ur Leukocyte Esterase LARGE (NEGATIVE) H 06/12/18 19:35 Urine RBC 2-5 /hpf (0-5) 06/12/18 19:35 Urine WBC 6-10 /hpf (0-5) H 06/12/18 19:35 Ur Epithelial Cells MODERATE /lpf (FEW) 06/12/18 19:35 Urine Bacteria 3+ /hpf (NONE SEEN) H 06/12/18 19:35 - Physical Exam Vitals and I&O: Vital Signs Temp 97.6 F 06/18/18 12:01 Pulse 87 06/18/18 12:01 Resp 18 06/18/18 12:01 BP 133/87 06/18/18 12:01 Pulse Ox 98 06/18/18 12:01 Intake & Output 06/17/18 06/18/18 06/18/18 18:59 06:59 18:59 Intake Total 770 560 Balance 770 560 Weight (lbs) 73.981 kg 74.843 kg Intake: Tube Feeding 770 560 Other: # Voids 2 2 # Bowel Movements 1 1 Stool Characteristics Soft Brown Weight Source Bedscale Bedscale Active Medications: Current Medications Acetaminophen (Tylenol 650mg/20.3ml Suspension) 650 mg GT Q4H PRN PRN Reason: mild pain/temp >100.4F Acetaminophen/Hydrocodone Bitart ([place] 5mg/325mg) 1 tab PO Q4H PRN PRN Reason: Pain (Severe) Stop: 08/11/18 21:02 Last Admin: 06/16/18 17:06 Dose: 1 tab Aspirin (Ecotrin) 81 mg PO DAILY [facility] Stop: 08/12/18 08:59 Last Admin: 06/18/18 10:52 Dose: 81 mg Donepezil HCl (Aricept) 10 mg GT HS [facility] Stop: 08/12/18 20:59 Last Admin: 06/17/18 22:33 Dose: 10 mg Insulin Aspart (Novolog Insulin Sliding Scale) 0 units SUBQ ACHS [facility]; Protocol Stop: 08/12/18 08:14 Last Admin: 06/18/18 07:00 Dose: 2 units Insulin Detemir (Levemir Insulin) 20 units SUBQ 1700 [facility] Stop: 08/12/18 16:59 Last Admin: 06/17/18 17:03 Dose: 20 units Lactobacillus Rhamnosus (Culturelle 15b) 1 each GT DAILY [facility] Stop: 08/12/18 08:59 Last Admin: 06/18/18 10:51 Dose: 1 each Lisinopril (Zestril) 5 mg GT HS [facility] Stop: 08/12/18 20:59 Last Admin: 06/17/18 22:32 Dose: 5 mg Miconazole Nitrate (Antifungal Wound Cream) 1 appl TP BID [facility] Stop: 08/12/18 16:59 Last Admin: 06/18/18 10:59 Dose: 1 appl Miscellaneous (Probiotic Screen) 1 ea MC PRN PRN PRN Reason: PROTOCOL Stop: 08/17/18 10:27 Neomycin Sulfate (Neomycin) 500 mg GT BID [facility] Stop: 08/12/18 08:59 Last Admin: 06/18/18 10:55 Dose: 500 mg Olanzapine (Zyprexa) 5 mg PO BID [facility]; Protocol Stop: 08/15/18 16:59 Last Admin: 06/18/18 10:51 Dose: 5 mg Pantoprazole Sodium (Protonix) 40 mg GT QDAC [facility] Stop: 08/12/18 07:29 Last Admin: 06/18/18 07:00 Dose: 40 mg Quetiapine Fumarate (Seroquel) 100 mg GT HS [facility]; Protocol Stop: 08/15/18 20:59 Last Admin: 06/17/18 22:33 Dose: 100 mg Trimethoprim/Sulfamethoxazole (Bactrim Ds) 0.5 tab PO BID [facility] Stop: 08/15/18 08:59 Last Admin: 06/18/18 10:57 Dose: 0.5 tab General: no acute distress, well developed, well nourished HEENT: atraumatic, normocephalic, PERRLA, EOMI, moist mucous membrane Neck: supple, no thyromegaly Cardiovascular: S1S2, regular Lungs: clear to auscultation bilaterally, clear to percussion Abdomen: soft, no tender, no distended, no hepatomegaly, no splenomegaly Extremities: no cyanosis, no clubbing, no edema Neurological: awake, alert Skin: intact - Procedures Procedures: Procedures Procedure Code Date GROUP PSYCHOTHERAPY 68847 10/16/15 GROUP PSYCHOTHERAPY GZHZZZZ 10/16/15 OTHER GROUP THERAPY 94.44 11/01/06 Infectious Disease Assmt/Plan - Assessment Assessment: 1. Urinary tract infection. 2. Dementia. 3. Hypertension. 4. Diabetes mellitus type 2. - Plan Plan: Continue bactrim po for few more days.. Nutritional Asmnt/Malnutr-PDOC - Dietary Evaluation Malnutrition Findings (Please click <Entered> for more info): Nutritional Asmnt/Malnutrition Start: 06/13/18 15: 43 Text: Status: Complete Freq: Protocol: Document 06/13/18 15:43 LCHENG (Rec: 06/13/18 16:21 LCHENG [email or web address]) Nutritional Asmnt/Malnutrition Patient General Information Nutritional Screening High Risk Consult Diagnosis UTI, dehydration Pertinent Medical Hx/Surgical Hx HTN, DM, dyslipidemia, PUD/ GERD, arthritis, dementia, cirrhosis, PEG/GERD, depression, bipolar Subjective Information Consult received for buttocks intertrigo/wound. Pt seen sleeping at time of visit. TF was seen running at 70ml/hr at this time. Current Diet Order/ Nutrition Support glucerna 1.2 at 70ml/hr x 20hr Pertinent Medications novolog, levemir, culturelle, protonix Pertinent Labs 06/13 POC 244-279 06/12 BUN 31, Glucose 202, alb 3.1 Nutritional Hx/Data Height 1.7 m Height (Calculated Centimeters) 170.2 Current Weight (lbs) 74.843 kg Weight (Calculated Kilograms) 74.8 Weight (Calculated Grams) 93032.7 [place] Body Weight 135 Body Mass Index (BMI) 25.8 Weight Status Overweight GI Symptoms GI Symptoms None Last BM 12/5 Difficult in: None Skin Integrity/Comment: rash to perinium, pressure area reddened to buttocks, reddened to anterior vagina, GT sites, R/L lower legs, bruise to right upper arm Estimated Nutritional Goals Calories/Kcals/Kg 25-30 IBW 61kg Kcals Calculated 5127-4881 Protein g/k-1.2 Protein Calculated 61-73 Fluid: ml 1525-1830ml (1ml/kcal) Nutritional Problem 1. Problem Problem altered nutrition related labs Etiology hyperglycemia, endocrine dysfunction Signs/Symptoms: glucose 202, POC 182-279 Intervention/Recommendation Comments 1. Continue with current TF regimen Glucerna 1.2 70ml/hr x 20hr. It provides 1680kcal, 84g protein, 1127ml free water , meeting 100% of nutritional needs. 2. Monitor TF rate, tolerance, wt, skin integrity and labs. MD to adjust insulin for optimal glycemic control. 3. F/U as moderate risk in 3-5 days, 06/16-06/18 Expected Outcomes/Goals Expected Outcomes/Goals 1. Pt to meet at least 90% of nutritional needs via nutrition support with tolerance 2. Wt stability, skin to remain intact, labs to approach WNL.
[2018-06-18] MEDS: Insulin Detemir 100 units/mL 10mL Vial SUBQ SCH (17:45)
--- NOTE | 2018-06-18 19:15 | General Progress Note ---
Subjective - Review of Systems Service Date: 06/18/18 Subjective: Patient doing better sleeping Objective - Results Result Diagrams: 06/14/18 05:00 06/14/18 05:00 Recent Labs: Laboratory Last Values WBC 7.3 Th/cmm (4.8-10.8) 06/14/18 05:00 RBC 3.27 Mil/cmm (3.80-5.20) L 06/14/18 05:00 Hgb 10.2 gm/dL (12-16) L 06/14/18 05:00 Hct 30.3 % (41.0-60) L 06/14/18 05:00 MCV 92.7 fl (81-100) 06/14/18 05:00 MCH 31.2 pg (27.0-31.0) H 06/14/18 05:00 MCHC Differential 33.7 pg (28.0-36.0) 06/14/18 05:00 RDW 13.3 % (11.5-20.0) 06/14/18 05:00 Plt Count 146 Th/cmm (150-400) L 06/14/18 05:00 MPV 8.1 fl 06/14/18 05:00 Neutrophils % 80.2 % (40.0-80.0) H 06/14/18 05:00 Lymphocytes % 9.4 % (20.0-50.0) L 06/14/18 05:00 Monocytes % 7.3 % (2.0-10.0) 06/14/18 05:00 Eosinophils % 3.0 % (0.0-5.0) 06/14/18 05:00 Basophils % 0.1 % (0.0-2.0) 06/14/18 05:00 Neutrophils (Manual) Not Reportable 06/12/18 17:12 PT 11.2 SECONDS (9.5-11.5) 06/12/18 17:12 INR 1.08 (0.5-1.4) 06/12/18 17:12 PTT (Actin FS) 27.4 SECONDS (26.0-38.0) 06/12/18 17:12 Sodium 138 mEq/L (136-145) 06/14/18 05:00 Potassium 3.9 mEq/L (3.5-5.1) 06/14/18 05:00 Chloride 106 mEq/L (98-107) 06/14/18 05:00 Carbon Dioxide 24.7 mEq/L (21.0-31.0) 06/14/18 05:00 Anion Gap 11.2 (7.0-16.0) 06/14/18 05:00 BUN 26 mg/dL (7-25) H 06/14/18 05:00 Creatinine 0.7 mg/dL (0.6-1.2) 06/14/18 05:00 Est GFR ( Amer) TNP 06/14/18 05:00 Est GFR (Non-Af Amer) TNP 06/14/18 05:00 BUN/Creatinine Ratio 37.1 06/14/18 05:00 Glucose 228 mg/dL (70-105) H 06/14/18 05:00 POC Glucose 192 MG/DL (70 - 105) H 06/18/18 17:25 Whole Bld Lactic Acid 1.87 mmol/L (0.60-1.99) 06/12/18 17:12 Calcium 8.7 mg/dL (8.6-10.3) 06/14/18 05:00 Total Bilirubin 0.4 mg/dL (0.3-1.0) 06/14/18 05:00 AST 22 U/L (13-39) 06/14/18 05:00 ALT 19 U/L (7-52) 06/14/18 05:00 Alkaline Phosphatase 159 U/L (34-104) H 06/14/18 05:00 Ammonia 33 umol/L (16-53) 06/14/18 05:00 Creatine Kinase 56 U/L (30-223) 06/12/18 17:12 Troponin I 0.03 ng/mL (0.01-0.05) 06/12/18 17:12 Total Protein 5.6 gm/dL (6.0-8.3) L 06/14/18 05:00 Albumin 2.7 gm/dL (3.7-5.3) L 06/14/18 05:00 Globulin 2.9 gm/dL 06/14/18 05:00 Albumin/Globulin Ratio 0.9 (1.0-1.8) L 06/14/18 05:00 TSH 0.75 uIU/ml (0.34-5.60) 06/14/18 05:00 Urine Source MIDSTREAM 06/12/18 19:35 Urine Color YELLOW 06/12/18 19:35 Urine Clarity HAZY (CLEAR) 06/12/18 19:35 Urine pH 8.5 (4.6 - 8.0) 06/12/18 19:35 Ur Specific [place] 1.015 (1.005-1.030) 06/12/18 19:35 Urine Protein 30 mg/dL (NEGATIVE) H 06/12/18 19:35 Urine Glucose (UA) NEGATIVE mg/dL (NEGATIVE) 06/12/18 19:35 Urine Ketones NEGATIVE mg/dL (NEGATIVE) 06/12/18 19:35 Urine Blood SMALL (NEGATIVE) H 06/12/18 19:35 Urine Nitrate NEGATIVE (NEGATIVE) 06/12/18 19:35 Urine Bilirubin NEGATIVE (NEGATIVE) 06/12/18 19:35 Urine Urobilinogen 1.0 E.U./dL (0.2 - 1.0) 06/12/18 19:35 Ur Leukocyte Esterase LARGE (NEGATIVE) H 06/12/18 19:35 Urine RBC 2-5 /hpf (0-5) 06/12/18 19:35 Urine WBC 6-10 /hpf (0-5) H 06/12/18 19:35 Ur Epithelial Cells MODERATE /lpf (FEW) 06/12/18 19:35 Urine Bacteria 3+ /hpf (NONE SEEN) H 06/12/18 19:35 - Physical Exam Vitals and I&O: Vital Signs Temp 97.8 F 06/18/18 16:01 Pulse 84 06/18/18 16:01 Resp 18 06/18/18 16:01 BP 130/70 06/18/18 16:01 Pulse Ox 99 06/18/18 16:01 Intake & Output 06/18/18 06/18/18 06/19/18 06:59 18:59 06:59 Intake Total 560 770 Balance 560 770 Weight (lbs) 74.843 kg 74.389 kg Intake: Tube Feeding 560 770 Other: # Voids 2 4 # Bowel Movements 1 1 Stool Characteristics Formed Brown Weight Source Bedscale Bedscale Active Medications: Current Medications Acetaminophen (Tylenol 650mg/20.3ml Suspension) 650 mg GT Q4H PRN PRN Reason: mild pain/temp >100.4F Acetaminophen/Hydrocodone Bitart ([place] 5mg/325mg) 1 tab PO Q4H PRN PRN Reason: Pain (Severe) Stop: 08/11/18 21:02 Last Admin: 06/16/18 17:06 Dose: 1 tab Aspirin (Ecotrin) 81 mg PO DAILY [facility] Stop: 08/12/18 08:59 Last Admin: 06/18/18 10:52 Dose: 81 mg Donepezil HCl (Aricept) 10 mg GT HS [facility] Stop: 08/12/18 20:59 Last Admin: 06/17/18 22:33 Dose: 10 mg Insulin Aspart (Novolog Insulin Sliding Scale) 0 units SUBQ ACHS [facility]; Protocol Stop: 08/12/18 08:14 Last Admin: 06/18/18 17:47 Dose: 2 units Insulin Detemir (Levemir Insulin) 20 units SUBQ 1700 [facility] Stop: 08/12/18 16:59 Last Admin: 06/18/18 17:45 Dose: 20 units Lactobacillus Rhamnosus (Culturelle 15b) 1 each GT DAILY [facility] Stop: 08/12/18 08:59 Last Admin: 06/18/18 10:51 Dose: 1 each Lisinopril (Zestril) 5 mg GT HS [facility] Stop: 08/12/18 20:59 Last Admin: 06/17/18 22:32 Dose: 5 mg Miconazole Nitrate (Antifungal Wound Cream) 1 appl TP BID [facility] Stop: 08/12/18 16:59 Last Admin: 06/18/18 17:43 Dose: 1 appl Miscellaneous (Probiotic Screen) 1 ea MC PRN PRN PRN Reason: PROTOCOL Stop: 08/17/18 10:27 Neomycin Sulfate (Neomycin) 500 mg GT BID [facility] Stop: 08/12/18 08:59 Last Admin: 06/18/18 17:42 Dose: 500 mg Olanzapine (Zyprexa) 5 mg PO BID [facility]; Protocol Stop: 08/15/18 16:59 Last Admin: 06/18/18 17:42 Dose: 5 mg Pantoprazole Sodium (Protonix) 40 mg GT QDAC [facility] Stop: 08/12/18 07:29 Last Admin: 06/18/18 07:00 Dose: 40 mg Quetiapine Fumarate (Seroquel) 100 mg GT HS [facility]; Protocol Stop: 08/15/18 20:59 Last Admin: 06/17/18 22:33 Dose: 100 mg Trimethoprim/Sulfamethoxazole (Bactrim Ds) 0.5 tab PO BID [facility] Stop: 08/15/18 08:59 Last Admin: 06/18/18 17:42 Dose: 0.5 tab Cardiovascular: Regular rate Lungs: Clear to auscultation - Procedures Procedures: Procedures Procedure Code Date GROUP PSYCHOTHERAPY 50178 10/16/15 GROUP PSYCHOTHERAPY GZHZZZZ 10/16/15 OTHER GROUP THERAPY 94.44 11/01/06 Assessment/Plan - Assessment Assessment: Altered mental state improving UTI Dysphagia Dementia - Plan Plan: Puree diet G tube feeding Continue antibiotics Psych follow up DC plan back to SNIF in progress patient's daughter was updated on DC plan Plan of care discussed with nursing staff Nutritional Asmnt/Malnutr-PDOC - Dietary Evaluation Malnutrition Findings (Please click <Entered> for more info): Nutritional Asmnt/Malnutrition Start: 06/13/18 15: 43 Text: Status: Complete Freq: Protocol: Document 06/13/18 15:43 LCHENG (Rec: 06/13/18 16:21 LCHENG [email or web address]) Nutritional Asmnt/Malnutrition Patient General Information Nutritional Screening High Risk Consult Diagnosis UTI, dehydration Pertinent Medical Hx/Surgical Hx HTN, DM, dyslipidemia, PUD/ GERD, arthritis, dementia, cirrhosis, PEG/GERD, depression, bipolar Subjective Information Consult received for buttocks intertrigo/wound. Pt seen sleeping at time of visit. TF was seen running at 70ml/hr at this time. Current Diet Order/ Nutrition Support glucerna 1.2 at 70ml/hr x 20hr Pertinent Medications novolog, levemir, culturelle, protonix Pertinent Labs 06/13 POC 244-279 06/12 BUN 31, Glucose 202, alb 3.1 Nutritional Hx/Data Height 1.7 m Height (Calculated Centimeters) 170.2 Current Weight (lbs) 74.843 kg Weight (Calculated Kilograms) 74.8 Weight (Calculated Grams) 00748.7 [place] Body Weight 135 Body Mass Index (BMI) 25.8 Weight Status Overweight GI Symptoms GI Symptoms None Last BM 06/13 Difficult in: None Skin Integrity/Comment: rash to perinium, pressure area reddened to buttocks, reddened to anterior vagina, GT sites, R/L lower legs, bruise to right upper arm Estimated Nutritional Goals Calories/Kcals/Kg 25-30 IBW 61kg Kcals Calculated 5292-0059 Protein g/k-1.2 Protein Calculated 61-73 Fluid: ml 1525-1830ml (1ml/kcal) Nutritional Problem 1. Problem Problem altered nutrition related labs Etiology hyperglycemia, endocrine dysfunction Signs/Symptoms: glucose 202, POC 182-279 Intervention/Recommendation Comments 1. Continue with current TF regimen Glucerna 1.2 70ml/hr x 20hr. It provides 1680kcal, 84g protein, 1127ml free water , meeting 100% of nutritional needs. 2. Monitor TF rate, tolerance, wt, skin integrity and labs. MD to adjust insulin for optimal glycemic control. 3. F/U as moderate risk in 3-5 days, 06/16-06/18 Expected Outcomes/Goals Expected Outcomes/Goals 1. Pt to meet at least 90% of nutritional needs via nutrition support with tolerance 2. Wt stability, skin to remain intact, labs to approach WNL.
[2018-06-18] MEDS: Hydrocodone/APAP 5mg/325mg Tab PO PRN (20:34)
--- NOTE | 2018-06-18 20:57 | Progress Notes ---
DATE: PSYCHIATRIC PROGRESS NOTE SUBJECTIVE: Chart reviewed and the patient interviewed. Also discussed the patient's condition with the staff and reviewed records and labs. The patient is still confused and anxious. The patient also is restless. The patient also is having mood swings and she still have labile affect and needs redirections. Otherwise, the patient is compliant with taking her medications and continue to take Aricept and Zyprexa with no side effects. She is also taking Seroquel at night, which helps her to sleep. [facility]# [id number]
[2018-06-19] MEDS: Pantoprazole 40 mg/Packet GT SCH (06:29)
[2018-06-19] MEDS: INSULIN ASPART SLIDING SCALE 100 UNITS/ML UNIT SUBQ SCH ×4 (06:30→21:04)
[2018-06-19] MEDS: Lactobacillus Rhamnosus GG 15 Billion CFU CAP.SPRINK GT SCH (10:00)
[2018-06-19] MEDS: Sulfamethoxazole/TMP 800/160mg Tab PO SCH ×2 (10:00→18:03)
[2018-06-19] MEDS: Miconazole Nitrate 2% Antifungal Wound Cream 4 oz. Tube TP SCH ×2 (10:00→18:04)
[2018-06-19] MEDS: Insulin Detemir 100 units/mL 10mL Vial SUBQ SCH (18:05)
[2018-06-19] MEDS: Hydrocodone/APAP 5mg/325mg Tab PO PRN ×2 (18:12→23:13)
--- NOTE | 2018-06-19 23:59 | Infectious Disease Prog Note ---
Infectious Disease Subjective - Review of Systems Service Date: 06/19/18 Subjective: There is no new change, no fever. Urine culture grew Pseudomonas. Infectious Disease Objective - Results Result Diagrams: 06/14/18 05:00 06/14/18 05:00 Recent Labs: Laboratory Last Values WBC 7.3 Th/cmm (4.8-10.8) 06/14/18 05:00 RBC 3.27 Mil/cmm (3.80-5.20) L 06/14/18 05:00 Hgb 10.2 gm/dL (12-16) L 06/14/18 05:00 Hct 30.3 % (41.0-60) L 06/14/18 05:00 MCV 92.7 fl (81-100) 06/14/18 05:00 MCH 31.2 pg (27.0-31.0) H 06/14/18 05:00 MCHC Differential 33.7 pg (28.0-36.0) 06/14/18 05:00 RDW 13.3 % (11.5-20.0) 06/14/18 05:00 Plt Count 146 Th/cmm (150-400) L 06/14/18 05:00 MPV 8.1 fl 06/14/18 05:00 Neutrophils % 80.2 % (40.0-80.0) H 06/14/18 05:00 Lymphocytes % 9.4 % (20.0-50.0) L 06/14/18 05:00 Monocytes % 7.3 % (2.0-10.0) 06/14/18 05:00 Eosinophils % 3.0 % (0.0-5.0) 06/14/18 05:00 Basophils % 0.1 % (0.0-2.0) 06/14/18 05:00 Neutrophils (Manual) Not Reportable 06/12/18 17:12 PT 11.2 SECONDS (9.5-11.5) 06/12/18 17:12 INR 1.08 (0.5-1.4) 06/12/18 17:12 PTT (Actin FS) 27.4 SECONDS (26.0-38.0) 06/12/18 17:12 Sodium 138 mEq/L (136-145) 06/14/18 05:00 Potassium 3.9 mEq/L (3.5-5.1) 06/14/18 05:00 Chloride 106 mEq/L (98-107) 06/14/18 05:00 Carbon Dioxide 24.7 mEq/L (21.0-31.0) 06/14/18 05:00 Anion Gap 11.2 (7.0-16.0) 06/14/18 05:00 BUN 26 mg/dL (7-25) H 06/14/18 05:00 Creatinine 0.7 mg/dL (0.6-1.2) 06/14/18 05:00 Est GFR ( Amer) TNP 06/14/18 05:00 Est GFR (Non-Af Amer) TNP 06/14/18 05:00 BUN/Creatinine Ratio 37.1 06/14/18 05:00 Glucose 228 mg/dL (70-105) H 06/14/18 05:00 POC Glucose 180 MG/DL (70 - 105) H 06/19/18 20:59 Whole Bld Lactic Acid 1.87 mmol/L (0.60-1.99) 06/12/18 17:12 Calcium 8.7 mg/dL (8.6-10.3) 06/14/18 05:00 Total Bilirubin 0.4 mg/dL (0.3-1.0) 06/14/18 05:00 AST 22 U/L (13-39) 06/14/18 05:00 ALT 19 U/L (7-52) 06/14/18 05:00 Alkaline Phosphatase 159 U/L (34-104) H 06/14/18 05:00 Ammonia 33 umol/L (16-53) 06/14/18 05:00 Creatine Kinase 56 U/L (30-223) 06/12/18 17:12 Troponin I 0.03 ng/mL (0.01-0.05) 06/12/18 17:12 Total Protein 5.6 gm/dL (6.0-8.3) L 06/14/18 05:00 Albumin 2.7 gm/dL (3.7-5.3) L 06/14/18 05:00 Globulin 2.9 gm/dL 06/14/18 05:00 Albumin/Globulin Ratio 0.9 (1.0-1.8) L 06/14/18 05:00 TSH 0.75 uIU/ml (0.34-5.60) 06/14/18 05:00 Urine Source MIDSTREAM 06/12/18 19:35 Urine Color YELLOW 06/12/18 19:35 Urine Clarity HAZY (CLEAR) 06/12/18 19:35 Urine pH 8.5 (4.6 - 8.0) 06/12/18 19:35 Ur Specific [place] 1.015 (1.005-1.030) 06/12/18 19:35 Urine Protein 30 mg/dL (NEGATIVE) H 06/12/18 19:35 Urine Glucose (UA) NEGATIVE mg/dL (NEGATIVE) 06/12/18 19:35 Urine Ketones NEGATIVE mg/dL (NEGATIVE) 06/12/18 19:35 Urine Blood SMALL (NEGATIVE) H 06/12/18 19:35 Urine Nitrate NEGATIVE (NEGATIVE) 06/12/18 19:35 Urine Bilirubin NEGATIVE (NEGATIVE) 06/12/18 19:35 Urine Urobilinogen 1.0 E.U./dL (0.2 - 1.0) 06/12/18 19:35 Ur Leukocyte Esterase LARGE (NEGATIVE) H 06/12/18 19:35 Urine RBC 2-5 /hpf (0-5) 06/12/18 19:35 Urine WBC 6-10 /hpf (0-5) H 06/12/18 19:35 Ur Epithelial Cells MODERATE /lpf (FEW) 06/12/18 19:35 Urine Bacteria 3+ /hpf (NONE SEEN) H 06/12/18 19:35 - Physical Exam Vitals and I&O: Vital Signs Temp 97.4 F 06/19/18 20:00 Pulse 86 06/19/18 21:01 Resp 19 06/19/18 20:00 BP 132/43 06/19/18 21:01 Pulse Ox 95 06/19/18 20:00 Intake & Output 06/19/18 06/19/18 06/20/18 06:59 18:59 06:59 Intake Total 560 770 Balance 560 770 Weight (lbs) 74.389 kg 74.389 kg Intake: Tube Feeding 560 770 Other: # Voids 2 3 # Bowel Movements 0 0 Weight Source Bedscale Bedscale Active Medications: Current Medications Acetaminophen (Tylenol 650mg/20.3ml Suspension) 650 mg GT Q4H PRN PRN Reason: mild pain/temp >100.4F Acetaminophen/Hydrocodone Bitart (Mobile 5mg/325mg) 1 tab PO Q4H PRN PRN Reason: Pain (Severe) Stop: 08/11/18 21:02 Last Admin: 06/19/18 23:13 Dose: 1 tab Aspirin (Ecotrin) 81 mg PO DAILY [facility] Stop: 08/12/18 08:59 Last Admin: 06/19/18 10:00 Dose: 81 mg Ciprofloxacin (Cipro) 250 mg GT BID [facility] Stop: 06/26/18 16:59 Last Admin: 06/19/18 18:03 Dose: 250 mg Donepezil HCl (Aricept) 10 mg GT HS [facility] Stop: 08/12/18 20:59 Last Admin: 06/19/18 21:00 Dose: 10 mg Insulin Aspart (Novolog Insulin Sliding Scale) 0 units SUBQ ACHS [facility]; Protocol Stop: 08/12/18 08:14 Last Admin: 06/19/18 21:04 Dose: 2 units Insulin Detemir (Levemir Insulin) 20 units SUBQ 1700 [facility] Stop: 08/12/18 16:59 Last Admin: 06/19/18 18:05 Dose: 20 units Lactobacillus Rhamnosus (Culturelle 15b) 1 each GT DAILY [facility] Stop: 08/12/18 08:59 Last Admin: 06/19/18 10:00 Dose: 1 each Lisinopril (Zestril) 5 mg GT HS [facility] Stop: 08/12/18 20:59 Last Admin: 06/19/18 21:01 Dose: 5 mg Miconazole Nitrate (Antifungal Wound Cream) 1 appl TP BID [facility] Stop: 08/12/18 16:59 Last Admin: 06/19/18 18:04 Dose: 1 appl Miscellaneous (Probiotic Screen) 1 ea MC PRN PRN PRN Reason: PROTOCOL Stop: 08/17/18 10:27 Olanzapine (Zyprexa) 5 mg PO BID [facility]; Protocol Stop: 08/15/18 16:59 Last Admin: 06/19/18 18:08 Dose: 5 mg Pantoprazole Sodium (Protonix) 40 mg GT QDAC [facility] Stop: 08/12/18 07:29 Last Admin: 06/19/18 06:29 Dose: 40 mg Quetiapine Fumarate (Seroquel) 100 mg GT HS [facility]; Protocol Stop: 08/15/18 20:59 Last Admin: 06/19/18 21:00 Dose: 100 mg Trimethoprim/Sulfamethoxazole (Bactrim Ds) 0.5 tab PO BID [facility] Stop: 08/15/18 08:59 Last Admin: 06/19/18 18:03 Dose: 0.5 tab - Procedures Procedures: Procedures Procedure Code Date GROUP PSYCHOTHERAPY 38171 10/16/15 GROUP PSYCHOTHERAPY GZHZZZZ 10/16/15 OTHER GROUP THERAPY 94.44 11/01/06 Infectious Disease Assmt/Plan - Assessment Assessment: 1. Urinary tract infection. 2. Dementia. 3. Hypertension. 4. Diabetes mellitus type 2. - Plan Plan: Start cipro po for 7 days.. DC bactrim po for few more days.. Nutritional Asmnt/Malnutr-PDOC - Dietary Evaluation Malnutrition Findings (Please click <Entered> for more info): Nutritional Asmnt/Malnutrition Start: 06/13/18 15: 43 Text: Status: Complete Freq: Protocol: Document 06/13/18 15:43 LCHENG (Rec: 06/13/18 16:21 [email or web address]) Nutritional Asmnt/Malnutrition Patient General Information Nutritional Screening High Risk Consult Diagnosis UTI, dehydration Pertinent Medical Hx/Surgical Hx HTN, DM, dyslipidemia, PUD/ GERD, arthritis, dementia, cirrhosis, PEG/GERD, depression, bipolar Subjective Information Consult received for buttocks intertrigo/wound. Pt seen sleeping at time of visit. TF was seen running at 70ml/hr at this time. Current Diet Order/ Nutrition Support glucerna 1.2 at 70ml/hr x 20hr Pertinent Medications novolog, levemir, culturelle, protonix Pertinent Labs 06/13 POC [id number] 06/12 BUN 31, Glucose 202, alb 3.1 Nutritional Hx/Data Height 1.7 m Height (Calculated Centimeters) 170.2 Current Weight (lbs) 74.843 kg Weight (Calculated Kilograms) 74.8 Weight (Calculated Grams) 24107.7 [place] Body Weight 135 Body Mass Index (BMI) 25.8 Weight Status Overweight GI Symptoms GI Symptoms None Last BM 06/13 Difficult in: None Skin Integrity/Comment: rash to perinium, pressure area reddened to buttocks, reddened to anterior vagina, GT sites, R/L lower legs, bruise to right upper arm Estimated Nutritional Goals Calories/Kcals/Kg 25-30 IBW 61kg Kcals Calculated 0595-2258 Protein g/k-1.2 Protein Calculated 61-73 Fluid: ml 1525-1830ml (1ml/kcal) Nutritional Problem 1. Problem Problem altered nutrition related labs Etiology hyperglycemia, endocrine dysfunction Signs/Symptoms: glucose 202, POC 182-279 Intervention/Recommendation Comments 1. Continue with current TF regimen Glucerna 1.2 70ml/hr x 20hr. It provides 1680kcal, 84g protein, 1127ml free water , meeting 100% of nutritional needs. 2. Monitor TF rate, tolerance, wt, skin integrity and labs. MD to adjust insulin for optimal glycemic control. 3. F/U as moderate risk in 3-5 days, 06/16-06/18 Expected Outcomes/Goals Expected Outcomes/Goals 1. Pt to meet at least 90% of nutritional needs via nutrition support with tolerance 2. Wt stability, skin to remain intact, labs to approach WNL.
--- NOTE | 2018-06-20 02:01 | Progress Notes ---
DATE: 06/19/2018 PSYCHIATRIC PROGRESS NOTE SUBJECTIVE: Chart reviewed and the patient interviewed. Also discussed the patient's condition with the staff and reviewed records and labs. The patient is still anxious and she is still restless, but her affect is brighter and she seems to be calmer than before. The patient also is trying to carry on conversations, but she is confused and unable to do so because of her mental abilities and because of her forgetfulness and dementia. Easier to redirect her. Otherwise, the patient is compliant with taking her medications with no side effects with medications. ASSESSMENT: The patient seems to be calmer than before. TREATMENT PLAN: Continue same medications and the treatment and the patient can be treated at lower level in regard to her mental abilities and she can be discharged back to the long term when medically stable. [facility]# [id number]
[2018-06-20] MEDS: INSULIN ASPART SLIDING SCALE 100 UNITS/ML UNIT SUBQ SCH ×2 (06:43→11:44)
[2018-06-20] MEDS: Pantoprazole 40 mg/Packet GT SCH (06:44)
[2018-06-20] MEDS: Lactobacillus Rhamnosus GG 15 Billion CFU CAP.SPRINK GT SCH (08:53)
[2018-06-20] MEDS: Miconazole Nitrate 2% Antifungal Wound Cream 4 oz. Tube TP SCH (08:54)
--- NOTE | 2018-06-20 14:35 | General Progress Note ---
Subjective - Review of Systems Service Date: 06/19/18 Subjective: Late entry: Patient doing better no new concern reported Objective - Results Result Diagrams: 06/14/18 05:00 06/14/18 05:00 Recent Labs: Laboratory Last Values WBC 7.3 Th/cmm (4.8-10.8) 06/14/18 05:00 RBC 3.27 Mil/cmm (3.80-5.20) L 06/14/18 05:00 Hgb 10.2 gm/dL (12-16) L 06/14/18 05:00 Hct 30.3 % (41.0-60) L 06/14/18 05:00 MCV 92.7 fl (81-100) 06/14/18 05:00 MCH 31.2 pg (27.0-31.0) H 06/14/18 05:00 MCHC Differential 33.7 pg (28.0-36.0) 06/14/18 05:00 RDW 13.3 % (11.5-20.0) 06/14/18 05:00 Plt Count 146 Th/cmm (150-400) L 06/14/18 05:00 MPV 8.1 fl 06/14/18 05:00 Neutrophils % 80.2 % (40.0-80.0) H 06/14/18 05:00 Lymphocytes % 9.4 % (20.0-50.0) L 06/14/18 05:00 Monocytes % 7.3 % (2.0-10.0) 06/14/18 05:00 Eosinophils % 3.0 % (0.0-5.0) 06/14/18 05:00 Basophils % 0.1 % (0.0-2.0) 06/14/18 05:00 Neutrophils (Manual) Not Reportable 06/12/18 17:12 PT 11.2 SECONDS (9.5-11.5) 06/12/18 17:12 INR 1.08 (0.5-1.4) 06/12/18 17:12 PTT (Actin FS) 27.4 SECONDS (26.0-38.0) 06/12/18 17:12 Sodium 138 mEq/L (136-145) 06/14/18 05:00 Potassium 3.9 mEq/L (3.5-5.1) 06/14/18 05:00 Chloride 106 mEq/L (98-107) 06/14/18 05:00 Carbon Dioxide 24.7 mEq/L (21.0-31.0) 06/14/18 05:00 Anion Gap 11.2 (7.0-16.0) 06/14/18 05:00 BUN 26 mg/dL (7-25) H 06/14/18 05:00 Creatinine 0.7 mg/dL (0.6-1.2) 06/14/18 05:00 Est GFR ( Amer) TNP 06/14/18 05:00 Est GFR (Non-Af Amer) TNP 06/14/18 05:00 BUN/Creatinine Ratio 37.1 06/14/18 05:00 Glucose 228 mg/dL (70-105) H 06/14/18 05:00 POC Glucose 213 MG/DL (70 - 105) H 06/20/18 11:25 Whole Bld Lactic Acid 1.87 mmol/L (0.60-1.99) 06/12/18 17:12 Calcium 8.7 mg/dL (8.6-10.3) 06/14/18 05:00 Total Bilirubin 0.4 mg/dL (0.3-1.0) 06/14/18 05:00 AST 22 U/L (13-39) 06/14/18 05:00 ALT 19 U/L (7-52) 06/14/18 05:00 Alkaline Phosphatase 159 U/L (34-104) H 06/14/18 05:00 Ammonia 33 umol/L (16-53) 06/14/18 05:00 Creatine Kinase 56 U/L (30-223) 06/12/18 17:12 Troponin I 0.03 ng/mL (0.01-0.05) 06/12/18 17:12 Total Protein 5.6 gm/dL (6.0-8.3) L 06/14/18 05:00 Albumin 2.7 gm/dL (3.7-5.3) L 06/14/18 05:00 Globulin 2.9 gm/dL 06/14/18 05:00 Albumin/Globulin Ratio 0.9 (1.0-1.8) L 06/14/18 05:00 TSH 0.75 uIU/ml (0.34-5.60) 06/14/18 05:00 Urine Source MIDSTREAM 06/12/18 19:35 Urine Color YELLOW 06/12/18 19:35 Urine Clarity HAZY (CLEAR) 06/12/18 19:35 Urine pH 8.5 (4.6 - 8.0) 06/12/18 19:35 Ur Specific [place] 1.015 (1.005-1.030) 06/12/18 19:35 Urine Protein 30 mg/dL (NEGATIVE) H 06/12/18 19:35 Urine Glucose (UA) NEGATIVE mg/dL (NEGATIVE) 06/12/18 19:35 Urine Ketones NEGATIVE mg/dL (NEGATIVE) 06/12/18 19:35 Urine Blood SMALL (NEGATIVE) H 06/12/18 19:35 Urine Nitrate NEGATIVE (NEGATIVE) 06/12/18 19:35 Urine Bilirubin NEGATIVE (NEGATIVE) 06/12/18 19:35 Urine Urobilinogen 1.0 E.U./dL (0.2 - 1.0) 06/12/18 19:35 Ur Leukocyte Esterase LARGE (NEGATIVE) H 06/12/18 19:35 Urine RBC 2-5 /hpf (0-5) 06/12/18 19:35 Urine WBC 6-10 /hpf (0-5) H 06/12/18 19:35 Ur Epithelial Cells MODERATE /lpf (FEW) 06/12/18 19:35 Urine Bacteria 3+ /hpf (NONE SEEN) H 06/12/18 19:35 - Physical Exam Vitals and I&O: Vital Signs Temp 98.6 F 06/20/18 11:55 Pulse 85 06/20/18 11:55 Resp 18 06/20/18 11:55 BP 125/52 06/20/18 11:55 Pulse Ox 96 06/20/18 11:55 Intake & Output 06/19/18 06/20/18 06/20/18 18:59 06:59 18:59 Intake Total 770 1100 Balance 770 1100 Weight (lbs) 74.389 kg 74.389 kg Intake: Tube Feeding 770 800 Other 300 Other: # Voids 3 2 # Bowel Movements 0 1 Weight Source Bedscale Bedscale Active Medications: Current Medications Acetaminophen (Tylenol 650mg/20.3ml Suspension) 650 mg GT Q4H PRN PRN Reason: mild pain/temp >100.4F Acetaminophen/Hydrocodone Bitart ([place] 5mg/325mg) 1 tab PO Q4H PRN PRN Reason: Pain (Severe) Stop: 08/11/18 21:02 Last Admin: 06/19/18 23:13 Dose: 1 tab Aspirin (Ecotrin) 81 mg PO DAILY [facility] Stop: 08/12/18 08:59 Last Admin: 06/20/18 08:53 Dose: 81 mg Ciprofloxacin (Cipro) 250 mg GT BID [facility] Stop: 06/26/18 16:59 Last Admin: 06/20/18 08:52 Dose: 250 mg Donepezil HCl (Aricept) 10 mg GT HS [facility] Stop: 08/12/18 20:59 Last Admin: 06/19/18 21:00 Dose: 10 mg Insulin Aspart (Novolog Insulin Sliding Scale) 0 units SUBQ ACHS [facility]; Protocol Stop: 08/12/18 08:14 Last Admin: 06/20/18 11:44 Dose: 4 units Insulin Detemir (Levemir Insulin) 20 units SUBQ 1700 [facility] Stop: 08/12/18 16:59 Last Admin: 06/19/18 18:05 Dose: 20 units Lactobacillus Rhamnosus (Culturelle 15b) 1 each GT DAILY [facility] Stop: 08/12/18 08:59 Last Admin: 06/20/18 08:53 Dose: 1 each Lisinopril (Zestril) 5 mg GT [facility] Stop: 08/12/18 20:59 Last Admin: 06/19/18 21:01 Dose: 5 mg Miconazole Nitrate (Antifungal Wound Cream) 1 appl TP BID [facility] Stop: 08/12/18 16:59 Last Admin: 06/20/18 08:54 Dose: 1 appl Miscellaneous (Probiotic Screen) 1 ea MC PRN PRN PRN Reason: PROTOCOL Stop: 08/17/18 10:27 Olanzapine (Zyprexa) 5 mg PO BID [facility]; Protocol Stop: 08/15/18 16:59 Last Admin: 06/20/18 08:52 Dose: 5 mg Pantoprazole Sodium (Protonix) 40 mg GT QDAC [facility] Stop: 08/12/18 07:29 Last Admin: 06/20/18 06:44 Dose: 40 mg Quetiapine Fumarate (Seroquel) 100 mg GT HS [facility]; Protocol Stop: 08/15/18 20:59 Last Admin: 06/19/18 21:00 Dose: 100 mg Cardiovascular: Regular rate Lungs: Clear to auscultation - Procedures Procedures: Procedures Procedure Code Date GROUP PSYCHOTHERAPY 13318 10/16/15 GROUP PSYCHOTHERAPY GZHZZZZ 10/16/15 OTHER GROUP THERAPY 94.44 11/01/06 Assessment/Plan - Assessment Assessment: Altered mental state improving UTI Dysphagia Dementia - Plan Plan: Puree diet G tube feeding Continue antibiotics Psych follow up DC plan back to SNIF in progress patient's daughter was updated on DC plan Plan of care discussed with nursing staff Nutritional Asmnt/Malnutr-PDOC - Dietary Evaluation Malnutrition Findings (Please click <Entered> for more info): Nutritional Asmnt/Malnutrition Start: 06/13/18 15: 43 Text: Status: Complete Freq: Protocol: Document 06/13/18 15:43 LCHENG (Rec: 06/13/18 16:21 [email or web address]) Nutritional Asmnt/Malnutrition Patient General Information Nutritional Screening High Risk Consult Diagnosis UTI, dehydration Pertinent Medical Hx/Surgical Hx HTN, DM, dyslipidemia, PUD/ GERD, arthritis, dementia, cirrhosis, PEG/GERD, depression, bipolar Subjective Information Consult received for buttocks intertrigo/wound. Pt seen sleeping at time of visit. TF was seen running at 70ml/hr at this time. Current Diet Order/ Nutrition Support glucerna 1.2 at 70ml/hr x 20hr Pertinent Medications novolog, levemir, culturelle, protonix Pertinent Labs 06/13 POC [id number] 06/12 BUN 31, Glucose 202, alb 3.1 Nutritional Hx/Data Height 1.7 m Height (Calculated Centimeters) 170.2 Current Weight (lbs) 74.843 kg Weight (Calculated Kilograms) 74.8 Weight (Calculated Grams) 01554.7 [place] Body Weight 135 Body Mass Index (BMI) 25.8 Weight Status Overweight GI Symptoms GI Symptoms None Last BM 06/13 Difficult in: None Skin Integrity/Comment: rash to perinium, pressure area reddened to buttocks, reddened to anterior vagina, GT sites, R/L lower legs, bruise to right upper arm Estimated Nutritional Goals Calories/Kcals/Kg 25-30 IBW 61kg Kcals Calculated 4605-4113 Protein g/k-1.2 Protein Calculated 61-73 Fluid: ml 1525-1830ml (1ml/kcal) Nutritional Problem 1. Problem Problem altered nutrition related labs Etiology hyperglycemia, endocrine dysfunction Signs/Symptoms: glucose 202, POC 182-279 Intervention/Recommendation Comments 1. Continue with current TF regimen Glucerna 1.2 70ml/hr x 20hr. It provides 1680kcal, 84g protein, 1127ml free water , meeting 100% of nutritional needs. 2. Monitor TF rate, tolerance, wt, skin integrity and labs. MD to adjust insulin for optimal glycemic control. 3. F/U as moderate risk in 3-5 days, 06/16-06/18 Expected Outcomes/Goals Expected Outcomes/Goals 1. Pt to meet at least 90% of nutritional needs via nutrition support with tolerance 2. Wt stability, skin to remain intact, labs to approach WNL.
--- NOTE | 2018-06-20 14:37 | General Progress Note ---
Subjective - Review of Systems Service Date: 06/20/18 Subjective: Patient seen and examined DC plan for SNIF in progress behaviour seems stable Objective - Results Result Diagrams: 06/14/18 05:00 06/14/18 05:00 Recent Labs: Laboratory Last Values WBC 7.3 Th/cmm (4.8-10.8) 06/14/18 05:00 RBC 3.27 Mil/cmm (3.80-5.20) L 06/14/18 05:00 Hgb 10.2 gm/dL (12-16) L 06/14/18 05:00 Hct 30.3 % (41.0-60) L 06/14/18 05:00 MCV 92.7 fl (81-100) 06/14/18 05:00 MCH 31.2 pg (27.0-31.0) H 06/14/18 05:00 MCHC Differential 33.7 pg (28.0-36.0) 06/14/18 05:00 RDW 13.3 % (11.5-20.0) 06/14/18 05:00 Plt Count 146 Th/cmm (150-400) L 06/14/18 05:00 MPV 8.1 fl 06/14/18 05:00 Neutrophils % 80.2 % (40.0-80.0) H 06/14/18 05:00 Lymphocytes % 9.4 % (20.0-50.0) L 06/14/18 05:00 Monocytes % 7.3 % (2.0-10.0) 06/14/18 05:00 Eosinophils % 3.0 % (0.0-5.0) 06/14/18 05:00 Basophils % 0.1 % (0.0-2.0) 06/14/18 05:00 Neutrophils (Manual) Not Reportable 06/12/18 17:12 PT 11.2 SECONDS (9.5-11.5) 06/12/18 17:12 INR 1.08 (0.5-1.4) 06/12/18 17:12 PTT (Actin FS) 27.4 SECONDS (26.0-38.0) 06/12/18 17:12 Sodium 138 mEq/L (136-145) 06/14/18 05:00 Potassium 3.9 mEq/L (3.5-5.1) 06/14/18 05:00 Chloride 106 mEq/L (98-107) 06/14/18 05:00 Carbon Dioxide 24.7 mEq/L (21.0-31.0) 06/14/18 05:00 Anion Gap 11.2 (7.0-16.0) 06/14/18 05:00 BUN 26 mg/dL (7-25) H 06/14/18 05:00 Creatinine 0.7 mg/dL (0.6-1.2) 06/14/18 05:00 Est GFR ( Amer) TNP 06/14/18 05:00 Est GFR (Non-Af Amer) TNP 06/14/18 05:00 BUN/Creatinine Ratio 37.1 06/14/18 05:00 Glucose 228 mg/dL (70-105) H 06/14/18 05:00 POC Glucose 213 MG/DL (70 - 105) H 06/20/18 11:25 Whole Bld Lactic Acid 1.87 mmol/L (0.60-1.99) 06/12/18 17:12 Calcium 8.7 mg/dL (8.6-10.3) 06/14/18 05:00 Total Bilirubin 0.4 mg/dL (0.3-1.0) 06/14/18 05:00 AST 22 U/L (13-39) 06/14/18 05:00 ALT 19 U/L (7-52) 06/14/18 05:00 Alkaline Phosphatase 159 U/L (34-104) H 06/14/18 05:00 Ammonia 33 umol/L (16-53) 06/14/18 05:00 Creatine Kinase 56 U/L (30-223) 06/12/18 17:12 Troponin I 0.03 ng/mL (0.01-0.05) 06/12/18 17:12 Total Protein 5.6 gm/dL (6.0-8.3) L 06/14/18 05:00 Albumin 2.7 gm/dL (3.7-5.3) L 06/14/18 05:00 Globulin 2.9 gm/dL 06/14/18 05:00 Albumin/Globulin Ratio 0.9 (1.0-1.8) L 06/14/18 05:00 TSH 0.75 uIU/ml (0.34-5.60) 06/14/18 05:00 Urine Source MIDSTREAM 06/12/18 19:35 Urine Color YELLOW 06/12/18 19:35 Urine Clarity HAZY (CLEAR) 06/12/18 19:35 Urine pH 8.5 (4.6 - 8.0) 06/12/18 19:35 Ur Specific [place] 1.015 (1.005-1.030) 06/12/18 19:35 Urine Protein 30 mg/dL (NEGATIVE) H 06/12/18 19:35 Urine Glucose (UA) NEGATIVE mg/dL (NEGATIVE) 06/12/18 19:35 Urine Ketones NEGATIVE mg/dL (NEGATIVE) 06/12/18 19:35 Urine Blood SMALL (NEGATIVE) H 06/12/18 19:35 Urine Nitrate NEGATIVE (NEGATIVE) 06/12/18 19:35 Urine Bilirubin NEGATIVE (NEGATIVE) 06/12/18 19:35 Urine Urobilinogen 1.0 E.U./dL (0.2 - 1.0) 06/12/18 19:35 Ur Leukocyte Esterase LARGE (NEGATIVE) H 06/12/18 19:35 Urine RBC 2-5 /hpf (0-5) 06/12/18 19:35 Urine WBC 6-10 /hpf (0-5) H 06/12/18 19:35 Ur Epithelial Cells MODERATE /lpf (FEW) 06/12/18 19:35 Urine Bacteria 3+ /hpf (NONE SEEN) H 06/12/18 19:35 - Physical Exam Vitals and I&O: Vital Signs Temp 98.6 F 06/20/18 11:55 Pulse 85 06/20/18 11:55 Resp 18 06/20/18 11:55 BP 125/52 06/20/18 11:55 Pulse Ox 96 06/20/18 11:55 Intake & Output 06/19/18 06/20/18 06/20/18 18:59 06:59 18:59 Intake Total 770 1100 Balance 770 1100 Weight (lbs) 74.389 kg 74.389 kg Intake: Tube Feeding 770 800 Other 300 Other: # Voids 3 2 # Bowel Movements 0 1 Weight Source Bedscale Bedscale Active Medications: Current Medications Acetaminophen (Tylenol 650mg/20.3ml Suspension) 650 mg GT Q4H PRN PRN Reason: mild pain/temp >100.4F Acetaminophen/Hydrocodone Bitart ([place] 5mg/325mg) 1 tab PO Q4H PRN PRN Reason: Pain (Severe) Stop: 08/11/18 21:02 Last Admin: 06/19/18 23:13 Dose: 1 tab Aspirin (Ecotrin) 81 mg PO DAILY [facility] [place] Stop: 08/12/18 08:59 Last Admin: 06/20/18 08:53 Dose: 81 mg Ciprofloxacin (Cipro) 250 mg GT BID [facility] [place] Stop: 06/26/18 16:59 Last Admin: 06/20/18 08:52 Dose: 250 mg Donepezil HCl (Aricept) 10 mg GT HS [facility] [place] Stop: 08/12/18 20:59 Last Admin: 06/19/18 21:00 Dose: 10 mg Insulin Aspart (Novolog Insulin Sliding Scale) 0 units SUBQ ACHS [facility] [place]; Protocol Stop: 08/12/18 08:14 Last Admin: 06/20/18 11:44 Dose: 4 units Insulin Detemir (Levemir Insulin) 20 units SUBQ 1700 [facility] [place] Stop: 08/12/18 16:59 Last Admin: 06/19/18 18:05 Dose: 20 units Lactobacillus Rhamnosus (Culturelle 15b) 1 each GT DAILY [facility] [place] Stop: 08/12/18 08:59 Last Admin: 06/20/18 08:53 Dose: 1 each Lisinopril (Zestril) 5 mg GT HS [facility] [place] Stop: 08/12/18 20:59 Last Admin: 06/19/18 21:01 Dose: 5 mg Miconazole Nitrate (Antifungal Wound Cream) 1 appl TP BID [facility] [place] Stop: 08/12/18 16:59 Last Admin: 06/20/18 08:54 Dose: 1 appl Miscellaneous (Probiotic Screen) 1 ea MC PRN PRN PRN Reason: PROTOCOL Stop: 08/17/18 10:27 Olanzapine (Zyprexa) 5 mg PO BID [facility] [place]; Protocol Stop: 08/15/18 16:59 Last Admin: 06/20/18 08:52 Dose: 5 mg Pantoprazole Sodium (Protonix) 40 mg GT QDAC [facility] [place] Stop: 08/12/18 07:29 Last Admin: 06/20/18 06:44 Dose: 40 mg Quetiapine Fumarate (Seroquel) 100 mg GT HS [facility] [place]; Protocol Stop: 08/15/18 20:59 Last Admin: 06/19/18 21:00 Dose: 100 mg Cardiovascular: Regular rate Lungs: Clear to auscultation - Procedures Procedures: Procedures Procedure Code Date GROUP PSYCHOTHERAPY 73114 10/16/15 GROUP PSYCHOTHERAPY [id number] 10/16/15 OTHER GROUP THERAPY 94.44 11/01/06 Assessment/Plan - Assessment Assessment: UTI Dysphagia Dementia HTN Psych disorder - Plan Plan: Puree diet G tube feeding Continue antibiotics Psych follow up DC plan back to SNIF in progress Plan of care discussed with nursing staff Nutritional Asmnt/Malnutr-PDOC - Dietary Evaluation Malnutrition Findings (Please click <Entered> for more info): Nutritional Asmnt/Malnutrition Start: 06/13/18 15: 43 Text: Status: Complete Freq: Protocol: Document 06/13/18 15:43 LCHENG (Rec: 06/13/18 16:21 LCHENG [email or web address]) Nutritional Asmnt/Malnutrition Patient General Information Nutritional Screening High Risk Consult Diagnosis UTI, dehydration Pertinent Medical Hx/Surgical Hx HTN, DM, dyslipidemia, PUD/ GERD, arthritis, dementia, cirrhosis, PEG/GERD, depression, bipolar Subjective Information Consult received for buttocks intertrigo/wound. Pt seen sleeping at time of visit. TF was seen running at 70ml/hr at this time. Current Diet Order/ Nutrition Support glucerna 1.2 at 70ml/hr x 20hr Pertinent Medications novolog, levemir, culturelle, protonix Pertinent Labs 06/13 POC [id number] 06/12 BUN 31, Glucose 202, alb 3.1 Nutritional Hx/Data Height 1.7 m Height (Calculated Centimeters) 170.2 Current Weight (lbs) 74.843 kg Weight (Calculated Kilograms) 74.8 Weight (Calculated Grams) 98891.7 [place] Body Weight 135 Body Mass Index (BMI) 25.8 Weight Status Overweight GI Symptoms GI Symptoms None Last BM 06/13 Difficult in: None Skin Integrity/Comment: rash to perinium, pressure area reddened to buttocks, reddened to anterior vagina, GT sites, R/L lower legs, bruise to right upper arm Estimated Nutritional Goals Calories/Kcals/Kg 25-30 IBW 61kg Kcals Calculated 0553-9831 Protein g/k-1.2 Protein Calculated 61-73 Fluid: ml 1525-1830ml (1ml/kcal) Nutritional Problem 1. Problem Problem altered nutrition related labs Etiology hyperglycemia, endocrine dysfunction Signs/Symptoms: glucose 202, POC 182-279 Intervention/Recommendation Comments 1. Continue with current TF regimen Glucerna 1.2 70ml/hr x 20hr. It provides 1680kcal, 84g protein, 1127ml free water , meeting 100% of nutritional needs. 2. Monitor TF rate, tolerance, wt, skin integrity and labs. MD to adjust insulin for optimal glycemic control. 3. F/U as moderate risk in 3-5 days, 06/16-06/18 Expected Outcomes/Goals Expected Outcomes/Goals 1. Pt to meet at least 90% of nutritional needs via nutrition support with tolerance 2. Wt stability, skin to remain intact, labs to approach WNL.
--- NOTE | 2018-06-21 03:04 | Progress Notes ---
DATE: PSYCHIATRIC PROGRESS NOTE SUBJECTIVE: Chart reviewed and the patient interviewed. Also discussed the patient's condition with the staff and reviewed records and labs. The patient seems to be calmer. She is less agitated and less irritable. She is at times trying to pull IVs, but in general, she is not as agitated and seems to be much calmer than before. The patient has no side effect of psychotropic medications. ASSESSMENT: The patient currently seems to be calm. TREATMENT PLAN: Continue monitoring her behavior. Also, continue working on discharge plans and placement issue since it seems that [facility] does not want the patient back. JOB# [id number]
== END 2018-06-20 16:15 | DRG 70 ==
LOC: ER 16:43 → MSI 21:55
PROVIDERS: ADMIT Family Medicine; ATTEND Family Medicine
DX: G93.41 Metabolic encephalopathy (principal); E43 Unspecified severe protein-calorie malnutrition; N39.0 Urinary tract infection, site not specified; S82.201A Unspecified fracture of shaft of right tibia, initial encounter for closed fracture; F33.2 Major depressive disorder, recurrent severe without psychotic features; E11.65 Type 2 diabetes mellitus with hyperglycemia; Z93.1 Gastrostomy status; F03.90 Unspecified dementia, unspecified severity, without behavioral disturbance, psychotic disturbance, mood disturbance, and anxiety; R13.10 Dysphagia, unspecified; R32 Unspecified urinary incontinence; E78.5 Hyperlipidemia, unspecified; K21.9 Gastro-esophageal reflux disease without esophagitis; E11.22 Type 2 diabetes mellitus with diabetic chronic kidney disease; S82.401A Unspecified fracture of shaft of right fibula, initial encounter for closed fracture; I12.9 Hypertensive chronic kidney disease with stage 1 through stage 4 chronic kidney disease, or unspecified chronic kidney disease; N18.9 Chronic kidney disease, unspecified; M19.90 Unspecified osteoarthritis, unspecified site; K74.60 Unspecified cirrhosis of liver; E86.0 Dehydration; D64.9 Anemia, unspecified; K27.9 Peptic ulcer, site unspecified, unspecified as acute or chronic, without hemorrhage or perforation; F29 Unspecified psychosis not due to a substance or known physiological condition; X58.XXXA Exposure to other specified factors, initial encounter; Y93.89 Activity, other specified; Y92.89 Other specified places as the place of occurrence of the external cause; Y99.8 Other external cause status; Z91.041 Radiographic dye allergy status; Z83.3 Family history of diabetes mellitus; Z82.49 Family history of ischemic heart disease and other diseases of the circulatory system
CPT/HCPCS: 36415-UA; 71045-TC; 73590-TC-RT; 76770-TC; 80053-TC; 81001-TC; 82140-TC; 82550-TC; 82948-90; 83036-90; 83605; 84443-TC; 84484-TC; 85007-TC; 85025-TC; 85610-TC; 85730-TC; 87086-90; 93005; 97530; J0692; J0696; J1200; J1630; J1815; J2060; J7051; X3401; Z7610